=== PATIENT | female | born 1950 ===

== ENCOUNTER → 2018-02-13 | Outpatient (CLI) | payer OTHER | LOC: LAB 11:45 → LAB SHORT 11:45 | PROVIDERS: Nurse Practitioner Family | DX: Z01.419 Encounter for gynecological examination (general) (routine) without abnormal findings (principal) | CPT/HCPCS: 87624; G0145 ==

== ENCOUNTER 2022-05-11 15:56 | Emergency (ER) | payer OTHER ==
[~2022-05-11] VITALS: Ht 157.5 cm; Wt 81.7 kg
[2022-05-11] MEDS ORDERED: AMOCLA875 PO (16:21)
== END 2022-05-11 18:58 | disposition home or self-care (01) ==
LOC: ER 15:56
DX: S31.815A Open bite of right buttock, initial encounter (principal); W54.0XXA Bitten by dog, initial encounter
CPT/HCPCS: 99282

== ENCOUNTER 2024-11-16 09:34 | Inpatient (IN) | payer OTHER ==
[~2024-11-16] VITALS: Ht 160 cm; Wt 75.7 kg
[~2024-11-16 09:34] MED LIST: AMOCLA875 PO
[2024-11-16 10:35] LABS: BASOPHILS ABSOLUTE AUTO 0.05 K/mm3 (0.00-0.23); BASOPHILS PERCENT AUTO 0 % (0-2); EOSINOPHILS ABSOLUTE AUTO 0.07 K/mm3 (0.00-0.68); EOSINOPHILS PERCENT AUTO 1 % (0-6); Hematocrit 39.3 % (33.0-51.0); Hemoglobin 12.8 g/dL (11.5-16.0); IMMATURE GRAN ABSOLUTE AUTO 0.07 K/mm3 (0.00-0.10); IMMATURE GRAN PERCENT AUTO 1 % (0-1); LYMPHOCYTES ABSOLUTE AUTO 1.26 K/mm3 (0.84-5.20); LYMPHOCYTES PERCENT AUTO 9 % (21-46); MONOCYTES ABSOLUTE AUTO 0.85 K/mm3 (0.16-1.47); MONOCYTES PERCENT AUTO 6 % (4-13); Mean Corpuscular HGB 30.7 pg (26.0-34.0); Mean Corpuscular HGB Conc 32.6 g/dL (31.5-36.5); Mean Corpuscular Volume 94 fL (80-100); Mean Platelet Volume 9.4 fL (9.1-12.4); NEUTROPHILS ABSOLUTE AUTO 12.52 K/mm3 (1.96-9.15); NEUTROPHILS PERCENT AUTO 85 % (41-73); Platelet Count 266 K/mm3 (150-400); RDW Standard Deviation 41.6 fL (35.1-46.3); Red Blood Cell Count 4.17 M/mm3 (3.80-5.20); White Blood Cell Count 14.82 K/mm3 (4.00-11.30)
[2024-11-16 11:08] LABS: Albumin, Blood 2.6 g/dL (3.4-5.0); Albumin/Globulin Ratio 0.6 (0.8-1.8); Bilirubin, Total 1.4 mg/dL (0.1-1.0); Bun/Creatinine Ratio 15.5 (12.0-20.0); Calcium, Blood 8.7 mg/dL (8.5-10.1); Creatinine, Blood 0.78 mg/dL (0.40-1.00); Globulin, Blood 4.6 g/dL (2.2-4.0); Potassium, Blood 4.3 mmol/L (3.5-5.5); Total Protein, Blood 7.2 g/dL (6.4-8.2)
[2024-11-16] MEDS ORDERED: Vancomycin HCL 2,000 MG in NS 500 ML IV ONE (11:40)
[2024-11-16] MEDS ORDERED: FLU VACC TS2024-25(6MOS UP)/PF 45 MCG/0.5 ML SYRINGE IM PRN (13:05)
[2024-11-16] MEDS ORDERED: Piperacillin/Tazobactam Sod 4.5 GM in NS 100 ML IV SCH (13:23)
[2024-11-16 14:43] LABS: CHOL/HDL RATIO 4.5; Cholesterol 149 mg/dL (50-200); HDL Cholesterol 33 mg/dL (>39); LDL/HDL RATIO 2.8; Low Density Lipoprotein Chol 92 mg/dL (0-110); Triglycerides 121 mg/dL (30-160); Very Low Density Lipoprot Chol 24 mg/dL (6-32)
[2024-11-16] MEDS ORDERED: Clindamycin 900mg in D5W 50ML 50 ML IV SCH (15:00)
[2024-11-16] MEDS ORDERED: Insulin Human Lispro 100 Units/ML 3ML Syringe SC SCH (16:30)
[2024-11-16 22:10] VITALS: BP 129/72
[2024-11-16] MEDS ORDERED: NS 250 ML IV PRN (23:50)
[2024-11-16] MEDS ORDERED: FentaNYL Citrate 50 MCG/ML 2 ML Injection IV PRN (23:50)
[2024-11-17] VITALS (13 sets, daily range): BP systolic 89–120; BP diastolic 53–68
[2024-11-17] MEDS ORDERED: Vancomycin HCL 750 MG in NS 250 ML IV SCH
[2024-11-17] MEDS ORDERED: Clindamycin 900mg in D5W 50ML 50 ML IV SCH (03:00)
--- NOTE | 2024-11-17 07:35 | NUR ---
AERIAL APPLICATOR PILOT SUMMARY PT ADMITTED FROM THE ER. KEPT NPO AFTER MIDNIGHT FOR I&D. DRESSING CHANGE DONE PER MD ORDERS. PT HAS LOW HEALTH LITERACY. REPORTS USING "NATURAL METHODS" FOR HER DIABETES AND REPORTS NOT TAKING ANY MEDICATIONS AT HOME. HER BLOOD SUGAR WAS IN THE 300S ON ADMIT BUT, PER REPORT, SHE HAD REFUSED HER INSULIN. HOWEVER, AFTER A LONG DISCUSSION WITH PT THIS MORNING, SHE IS WILLING TO, AT LEAST TEMPORARILY, ALLOW TREATMENT WITH INSULIN FOR HER DIABETES SHE UNDERSTANDS WE ARE TRYING TO HELP HER INFECTION IMPROVE. PT REPORTS LIVING IN AN RV WITH HER DOG. SHE WILL NEED ASSISTANCE FROM CARE MANAGEMENT. PT HAS SIGNIFICANT SHORT TERM MEMORY LOSS. UNCLEAR IF THIS IS HER BASELINE OR NOT. SHE REPORTS NOT HAVING ANY FAMILY/FRIENDS AND THAT HER DOG IS STAYING AT A HOMELESS GROUP HOME WHILE SHE IS IN THE HOSPTIAL.
[2024-11-17 07:53] LABS: BASOPHILS ABSOLUTE AUTO 0.05 K/mm3 (0.00-0.23); BASOPHILS PERCENT AUTO 0 % (0-2); EOSINOPHILS PERCENT AUTO 1 % (0-6); Hematocrit 33.4 % (33.0-51.0); Hemoglobin 11.2 g/dL (11.5-16.0); IMMATURE GRAN ABSOLUTE AUTO 0.08 K/mm3 (0.00-0.10); IMMATURE GRAN PERCENT AUTO 1 % (0-1); LYMPHOCYTES ABSOLUTE AUTO 0.87 K/mm3 (0.84-5.20); LYMPHOCYTES PERCENT AUTO 6 % (21-46); MONOCYTES ABSOLUTE AUTO 0.83 K/mm3 (0.16-1.47); MONOCYTES PERCENT AUTO 6 % (4-13); Mean Corpuscular HGB 31.4 pg (26.0-34.0); Mean Corpuscular HGB Conc 33.5 g/dL (31.5-36.5); Mean Corpuscular Volume 94 fL (80-100); Mean Platelet Volume 9.1 fL (9.1-12.4); NEUTROPHILS ABSOLUTE AUTO 12.18 K/mm3 (1.96-9.15); NEUTROPHILS PERCENT AUTO 86 % (41-73); Platelet Count 250 K/mm3 (150-400); Red Blood Cell Count 3.57 M/mm3 (3.80-5.20); White Blood Cell Count 14.21 K/mm3 (4.00-11.30)
[2024-11-17 08:17] LABS: Albumin, Blood 2.2 g/dL (3.4-5.0); Albumin/Globulin Ratio 0.5 (0.8-1.8); Bilirubin, Total 1.1 mg/dL (0.1-1.0); Bun/Creatinine Ratio 14.4 (12.0-20.0); Calcium, Blood 8.1 mg/dL (8.5-10.1); Creatinine, Blood 0.9 mg/dL (0.40-1.00); Globulin, Blood 4.2 g/dL (2.2-4.0); Potassium, Blood 4.2 mmol/L (3.5-5.5); Total Protein, Blood 6.4 g/dL (6.4-8.2)
[2024-11-17] MEDS ORDERED: Miconazole Nitrate 2% 85 GM PWD TOP SCH (09:00)
[2024-11-17] MEDS ORDERED: Enoxaparin 40 MG/0.4 ML SYR SC SCH (09:00)
[2024-11-17] MEDS ORDERED: Insulin Glargine-Yfgn 100 Unit/mL 3 ML SYR SC SCH (09:00)
[2024-11-17] MEDS ORDERED: Lidocaine HCl 1% 30 ML SDV ONE (13:04)
[2024-11-17] MEDS ORDERED: Bupivacaine 0.5% HCl 5 MG/ML 30MLVIAL ONE (13:04)
[2024-11-17] MEDS ORDERED: Bacitracin Zinc Oint 1GRAM UD Packet TOP ONE (13:10)
[2024-11-17] MEDS ORDERED: Lactated Ringer's 1,000 ML IV SCH (15:00)
[2024-11-17] MEDS ORDERED: propofoL 20 ML IV ONE (15:03)
[2024-11-17] MEDS ORDERED: Ondansetron HCl 2 MG / ML 2ML Vial ONE (15:03)
[2024-11-17] MEDS ORDERED: Metoclopramide HCl 5MG / ML 2ML Vial ONE (15:04)
--- NOTE | 2024-11-17 15:51 | NUR ---
History, Chart, Medications and Allergies reviewed before start of procedure. Pre-Op teaching done. Pt verbalizes understanding. Patient confirms NPO status and agrees with scheduled surgery. Patient's necklace labled & transferred to PACU.
[2024-11-17] MEDS ORDERED: FentaNYL Citrate 50 MCG/ML 2 ML Injection ONE (15:55)
[2024-11-17] MEDS ORDERED: Atropine Sulfate 0.4 MG/1 ML Vial ONE (16:04)
--- NOTE | 2024-11-17 19:03 | NUR ---
SHIFT SUMMARY: PT A&O X3. PT CAN BE VERY FORGETFUL. CAN ALSO GET VERY ANXIOUS AND AGITATED AT TIMES. PT NPO FOR SURGERY TODAY. I&D COMPLETED. WOUND CARE DRESSING ORDER TO REINFORCE BUT NOT CHANGE UNTIL FOLLOW-UP. EXTREMITY TO BE KEPT ELEVATED. BLENDER MACHINE OPERATOR AWARE. PT ONE PERSON ASSIST c FWW AND GB. REDNESS NOTED UNDER BREASTS. MICONAZOLE POWDER APPLIED. BGC CHANGED TO AC/HS. CALL LIGHT IN REACH. BED IN LOWEST POSITION.
[2024-11-17 23:26] LABS: Vancomycin, Trough 19.1 ug/mL (5.0-10.0)
[2024-11-18 04:43] VITALS: BP 110/63
[2024-11-18 05:53] LABS: BASOPHILS ABSOLUTE AUTO 0.05 K/mm3 (0.00-0.23); BASOPHILS PERCENT AUTO 0 % (0-2); EOSINOPHILS PERCENT AUTO 3 % (0-6); Hematocrit 31.6 % (33.0-51.0); Hemoglobin 10.6 g/dL (11.5-16.0); IMMATURE GRAN ABSOLUTE AUTO 0.03 K/mm3 (0.00-0.10); IMMATURE GRAN PERCENT AUTO 0 % (0-1); LYMPHOCYTES ABSOLUTE AUTO 1.69 K/mm3 (0.84-5.20); LYMPHOCYTES PERCENT AUTO 14 % (21-46); MONOCYTES ABSOLUTE AUTO 0.75 K/mm3 (0.16-1.47); MONOCYTES PERCENT AUTO 6 % (4-13); Mean Corpuscular HGB 31.1 pg (26.0-34.0); Mean Corpuscular HGB Conc 33.5 g/dL (31.5-36.5); Mean Corpuscular Volume 93 fL (80-100); Mean Platelet Volume 9.5 fL (9.1-12.4); NEUTROPHILS ABSOLUTE AUTO 9.64 K/mm3 (1.96-9.15); NEUTROPHILS PERCENT AUTO 77 % (41-73); Platelet Count 257 K/mm3 (150-400); RDW Standard Deviation 41.1 fL (35.1-46.3); Red Blood Cell Count 3.41 M/mm3 (3.80-5.20); White Blood Cell Count 12.56 K/mm3 (4.00-11.30)
[2024-11-18 06:15] LABS: Albumin/Globulin Ratio 0.5 (0.8-1.8); Bilirubin, Total 0.6 mg/dL (0.1-1.0); Bun/Creatinine Ratio 14.1 (12.0-20.0); Calcium, Blood 7.9 mg/dL (8.5-10.1); Creatinine, Blood 0.92 mg/dL (0.40-1.00); Globulin, Blood 3.9 g/dL (2.2-4.0); Potassium, Blood 4.1 mmol/L (3.5-5.5); Total Protein, Blood 5.9 g/dL (6.4-8.2)
[2024-11-18 07:14] VITALS: BP 102/59
--- NOTE | 2024-11-18 07:33 | NUR ---
NUTRITION SERVICES ASSISTANT SUMMARY PT GETTING UP TO USE BSC WITH X1 ASSIST. VSS. HEALTH LITERACY A SIGNIFICANT BARRIER TO PT EDUCATION. PT MAY BENEFIT FROM A DEMENTIA WORKUP IT APPEARS HER SHORT TERM MEMORY LOSS IS SIGNIFICANT. NO ACUTE ISSUES OVERNIGHT. SEE ASSESSMENT CHARTING. BED ALARM IS CURRENTLY ON AND CALL LIGHT IS WITHIN REACH.
[2024-11-18] MEDS ORDERED: Enoxaparin 40 MG/0.4 ML SYR SC SCH (10:00)
[2024-11-18] MEDS ORDERED: Zinc Sulfate 220 MG Cap (Provides 50MG) PO SCH (11:35)
[2024-11-18] MEDS ORDERED: Ascorbic Acid 250 MG Chew PO SCH (11:35)
[2024-11-18] MEDS ORDERED: Vancomycin HCL 1,500 MG in NS 250 ML IV SCH (13:00)
[2024-11-18 15:23] VITALS: BP 114/70
--- NOTE | 2024-11-18 17:58 | NUR ---
SHIFT SUMMARY: PT ORIENTED X4 WITH ORIENTATION QUESTIONS BUT SHORT TERM MEMORY NOTICABLY IMPAIRED. SPOKE WITH DR. WALDEN WHO PLACED ORDER FOR COG EVAL WITH A SCORE OF 19/30 INDICATING MILD COGNITIVE IMPAIRMENT. PT LIVES AT [facility]. PER MISSING PERSONS INVESTIGATOR NOTE, PT RV IS NOT SUITABLE TO LIVE IN AND CAN NOT BE REPAIRED. PT TO HAVE HALF-WAY ABX FOR SEVERAL WEEKS. PER DR. ORTIZ NOTE, REINFORCE OF DRESSING OKAY BUT NOT TO CHANGE UNTIL FOLLOW-UP. PT UNWILLING TO USE WALKER WITH TRANSFERS IN ORDER TO MAINTAIN 50% WEIGHT BEARING ON L. FOOT. CALLED [employer] WHO WAS ABLE TO SEND POST OP BOOT. CALL LIGHT IN REACH. BED IN LOWEST POSITION.
[2024-11-18 20:56] VITALS: BP 114/67
--- NOTE | 2024-11-19 04:07 | NUR ---
SHIFT SUMMARY PATIENT HAD NO ACUTE CHANGES. AXOX 3 WITH SHORT TERM MEMORY. ONE ASSIST FWW/GB TO BSC. PIV INTACT. IV ABXS INFUSED. DENIES CHEST PAIN, SOB, AND N/V. VSS/AFEBRILE. DRESSING TO LEFT FOOT CHANGED BY DR ORTIZ AND WILL CHANGE AGAIN TODAY PER NOTE. CONFUSED X ONE AND REORIENTED BACK INTO BED. CALL LIGHT IN REACH. BED IN LOWEST POSITION AND ALARM ACTIVATED. WILL CONTINUE TO MONITOR UNTIL DAY SHIFT NURSE ASSUMES CARE.
[2024-11-19 05:03] VITALS: BP 94/82
[2024-11-19 05:54] LABS: BASOPHILS ABSOLUTE AUTO 0.05 K/mm3 (0.00-0.23); BASOPHILS PERCENT AUTO 1 % (0-2); EOSINOPHILS PERCENT AUTO 7 % (0-6); Hematocrit 30.9 % (33.0-51.0); Hemoglobin 10.5 g/dL (11.5-16.0); IMMATURE GRAN ABSOLUTE AUTO 0.02 K/mm3 (0.00-0.10); IMMATURE GRAN PERCENT AUTO 0 % (0-1); LYMPHOCYTES ABSOLUTE AUTO 1.24 K/mm3 (0.84-5.20); LYMPHOCYTES PERCENT AUTO 14 % (21-46); MONOCYTES ABSOLUTE AUTO 0.61 K/mm3 (0.16-1.47); MONOCYTES PERCENT AUTO 7 % (4-13); Mean Corpuscular HGB 31.3 pg (26.0-34.0); Mean Corpuscular Volume 92 fL (80-100); Mean Platelet Volume 9.3 fL (9.1-12.4); NEUTROPHILS ABSOLUTE AUTO 6.47 K/mm3 (1.96-9.15); NEUTROPHILS PERCENT AUTO 72 % (41-73); Platelet Count 248 K/mm3 (150-400); RDW Coefficient Variation 11.9 % (11.7-14.2); RDW Standard Deviation 40.3 fL (35.1-46.3); Red Blood Cell Count 3.36 M/mm3 (3.80-5.20); White Blood Cell Count 8.99 K/mm3 (4.00-11.30)
[2024-11-19 06:21] LABS: Albumin, Blood 1.9 g/dL (3.4-5.0); Albumin/Globulin Ratio 0.5 (0.8-1.8); Bilirubin, Total 0.5 mg/dL (0.1-1.0); Bun/Creatinine Ratio 11.8 (12.0-20.0); Creatinine, Blood 0.85 mg/dL (0.40-1.00); Globulin, Blood 4.1 g/dL (2.2-4.0)
[2024-11-19 07:24] VITALS: BP 126/72
[2024-11-19] MEDS ORDERED: Loperamide HCl 2 MG Cap PO PRN (09:10)
[2024-11-19] MEDS ORDERED: Charcoal/Sorbitol 50 GM (Cherry Flavor) PO ONE (09:10)
[2024-11-19] MEDS ORDERED: Lactobacil 2-S.Thermo-Bifido 1 1 Cap PO SCH ×2 (09:40→21:00)
[2024-11-19 15:25] VITALS: BP 116/74
--- NOTE | 2024-11-19 18:42 | NUR ---
SHIFT SUMMARY NO ACUTE CHANGES, VSS, A/Ox3 WITH SHORT TERM MEMORY ISSUES. PT DENIES PAIN T/O SHIFT. DR. ORTIZ COMPLETED DRESSING CHANGE THIS EVENING AND PLANS TO COMPLETE AN ADDITIONAL I&D TOMORROW. NEW IV PLACED DUE TO FIRST IV INFILTRATING. IV INSERTED BY STUDENT NURSE UNDER THIS RN SUPERVISION - ZOSYN CURRENTLY INFUSING. PT RESTING IN RECLINER EATING DINNER, CALL LIGHT WITHIN REACH. SURGICAL SHOE ON.
[2024-11-19 21:23] VITALS: BP 113/85
[2024-11-20 04:07] VITALS: BP 100/70
--- NOTE | 2024-11-20 04:11 | NUR ---
SHIFT SUMMARY PT ALERT ORIENTED X 4 WITH FORGETFULLNESS AND CONFUSION. SHE GETS UP AD ELMER IN HER ROOM. SHE HAS ORDERS TO WEAR HER WALKING BOOT TO HER LT FOOT AT ALL TIMES WHEN SHE GETS UP BUT SHE OFTEN REMOVES IT AND FORGETS TO PUT IT BACK ON. SHE IS REMINDED SEVERAL TIMES. SHES BEEN NPO SINCE MIDNIGHT FOR A I&D. REMAINS ON VANCO AND CLINDAMYCIN FOR CELLULITIS. SHES 50% WEIGHT BEARING TO HER LT LEG. REMAINS ON VANCO, CLINDAMYCIN AND ZOSYN. SHES DUE TO GET A PICC LINE PLACEMENT SO SHE CAN GET OUTPATIENT ANTIBIOTICS. SHES RESTING IN BED AT THIS TIME WITH CALL LIGHT IN REACH
[2024-11-20 06:18] LABS: BASOPHILS ABSOLUTE AUTO 0.03 K/mm3 (0.00-0.23); BASOPHILS PERCENT AUTO 0 % (0-2); EOSINOPHILS ABSOLUTE AUTO 0.72 K/mm3 (0.00-0.68); EOSINOPHILS PERCENT AUTO 9 % (0-6); Hematocrit 33.9 % (33.0-51.0); Hemoglobin 11.3 g/dL (11.5-16.0); IMMATURE GRAN ABSOLUTE AUTO 0.01 K/mm3 (0.00-0.10); IMMATURE GRAN PERCENT AUTO 0 % (0-1); LYMPHOCYTES ABSOLUTE AUTO 1.49 K/mm3 (0.84-5.20); LYMPHOCYTES PERCENT AUTO 20 % (21-46); MONOCYTES ABSOLUTE AUTO 0.47 K/mm3 (0.16-1.47); MONOCYTES PERCENT AUTO 6 % (4-13); Mean Corpuscular HGB 30.6 pg (26.0-34.0); Mean Corpuscular HGB Conc 33.3 g/dL (31.5-36.5); Mean Corpuscular Volume 92 fL (80-100); Mean Platelet Volume 9.5 fL (9.1-12.4); NEUTROPHILS ABSOLUTE AUTO 4.94 K/mm3 (1.96-9.15); NEUTROPHILS PERCENT AUTO 65 % (41-73); Platelet Count 296 K/mm3 (150-400); RDW Standard Deviation 40.1 fL (35.1-46.3); Red Blood Cell Count 3.69 M/mm3 (3.80-5.20); White Blood Cell Count 7.66 K/mm3 (4.00-11.30)
[2024-11-20 06:44] LABS: Albumin/Globulin Ratio 0.5 (0.8-1.8); Bilirubin, Total 0.4 mg/dL (0.1-1.0); Bun/Creatinine Ratio 9.6 (12.0-20.0); Calcium, Blood 8.3 mg/dL (8.5-10.1); Creatinine, Blood 0.83 mg/dL (0.40-1.00); Globulin, Blood 4.3 g/dL (2.2-4.0); Total Protein, Blood 6.3 g/dL (6.4-8.2)
[2024-11-20 07:35] VITALS: BP 93/49
[2024-11-20 13:32] LABS: Vancomycin, Trough 17.4 ug/mL (5.0-10.0)
[2024-11-20 13:46] VITALS: BP 107/65
[2024-11-20 16:07] VITALS: BP 146/79
--- NOTE | 2024-11-20 19:14 | NUR ---
SHIFT SUMMARY A/OX3, CONFUSED AND VERY FORGETFUL. PATIENT REUESTING MULTIPLE TIMES THROUGHOUT THE DAY TO LEAVE AND VISIT HER DOG ADN STATES SHE "WOULD COME RIGHT BACK". INFORMED MULTIPLE TIMES THAT IS NOT AN OPTION. PATIENT THEN REQUESTING STAFF MEMBERS TO GET HER DOG FOR HER AND BRING HIM TO THE HOSPITAL. PATIENT AGAIN EDUCATED THAT IS NOT AN OPTION. MRI OBTAINED OF PATIENT'S LEGFT FOOT TODAY. WOUND CARE PROVIDED PER ORDER. BLOOD PRESSURES SOFT THIS AM. PATIENT CONTINUES TO NOT ADHERE BY THE 50% WEIGHT BEARING STATUS TO LEFT LOWER EXTREMITY, DESPITE THOROUGH AND FREQUENT EDUCATION. NO OTHER CONCERNS AT THIS TIME. REPORT GIVEN TO JUKE BOX SERVICER RN.
--- NOTE | 2024-11-20 19:59 | NUR ---
Pt does not cooperate with asking for assist to get OOB, bed alarm in use. she is not compliant with weight bear status, and does put full weight bear on her foot, and does not put shoe on either. Pt up to BR without assist and locked door, this nurse explained issue and that she risks further injury to foot, she is not open to any instruction and feels we are "bossing her around". will continue to use bed alarm.
[2024-11-20 20:09] VITALS: BP 146/78
--- NOTE | 2024-11-21 04:28 | NUR ---
PT A&O X3, PO INTAKE WNL, VS WNL. COMPLAINS OF BACK PAIN BUT REFUSED ANY ASSIST WITH THAT. DID ATTEMPT TO REPOSITION HERE FOR BETTER BACK SUPPORT. PT WITH GOOD PO INTAKE. UP TO BR WITH ASSIST, DOES NOT CALL APPROPRIATELY, BED ALARM IN PLACE. CBG 202 NO COVERAGE NEEDED. PT DOES NOT COMPLY WITH WEIGHT BEARING STATUS. REQUIRES MULTIPLE REMINDERS TO KEEP FOOT ELEVATED. CONTINUES ON IVABX. AWAITING PLACEMENT TO SNF.
[2024-11-21 04:42] VITALS: BP 116/61
[2024-11-21 07:56] VITALS: BP 133/67
[2024-11-21 15:19] VITALS: BP 139/76
--- NOTE | 2024-11-21 16:37 | NUR ---
SHIFT SUMMARY PATIENT NOT ADHERING TO WEIGHT BEARING PRECAUTIONS, REACTS DEFENSIVELY WHEN REMINDED. SEVERAL BED EXITS WITHOUT USING CALL LIGHT, STATING VARIOUS REASONS FOR NOT USING CALL LIGHT. PULLED IV THIS AM, WHEN ASKED ABOUT WHAT HAPPENED PATIENT DENIED KNOWING ANYTHING DESPITE BEING COVERED IN BLOOD AND YELLING FOR HELP. NEW IV STARTED AND PATIENT CONTINUALLY ASKING FOR IT TO BE REMOVED STATING SHE HAS NOT BEEN RECEIVING ABX SO SHE DOESN'T NEED IT, WAS EDUCATED EACH TIME, PATIENT EACH TIME STATING THIS WAS NEW INFORMATION. DENIES KNOWING SHE HAS A WOUND ON HER FOOT, THEN RECITES WHAT DOC SAID DURING ROUNDING REGARDING HER WOUND AND TREATMENT. VOIDING WELL, TAKES PILLS WHOLE WITH WATER. C/O MILD PAIN, DENIED NEEDING MEDICATION. CALL LIGHT IN REACH, TIED TO BED RAIL FOR EASY ACCESS. BED ALARM ON. CARES ONGOING.
[2024-11-21] MEDS ORDERED: Vancomycin HCL 1,500 MG in NS 250 ML IV ONE (19:05)
[2024-11-21 20:09] VITALS: BP 136/70
--- NOTE | 2024-11-21 22:13 | NUR ---
PT VERY CONFUSED THIS NIGHT, KEEPS GETTING UP AMBULATING WITHOUT WALKER, AND WILL NOT COMPLY PWB ON LLE. PT KEEPS FORGETTING SHE'S IN THE HOSPITAL, KEEPS ASKING WHAT THE PLAN IS, AND IN RESPONSE I ENFORCE THAT SHE IS GETTING ABX FOR THE INFECTION IN HER FOOT, AND THAT THE PHYSICIAN DOES NOT WANT HER UP ON HER FOOT LIKE SHE IS. SHE KEEPS FOCUSING ON THE FACT THAT THE STAFF IS "POLICING HER ACTIVITY", THIS AGAIN I ENFORCE THAT THIS IS WHAT THE MD WANTS.
--- NOTE | 2024-11-21 23:34 | NUR ---
PT UP WITH BREAK NURSE AMBULATING IN LE, BOLTED TO ELEVATOR, ENCOURAGED BACK TO ROOM ASKED FOR AMA PAPER, ON PHONE LOOKING FOR SOMEONE TO COME PICK HER UP.
[2024-11-22] MEDS ORDERED: DiphenhydrAMINE HCl 50 MG/ML 1ML Vial ONE (00:03)
[2024-11-22] MEDS ORDERED: LORazepam 2 MG/ML 1ML Injection ONE (00:03)
[2024-11-22] MEDS ORDERED: DiphenhydrAMINE HCl 50 MG/ML 1ML Vial IV ONE (00:05)
[2024-11-22] MEDS ORDERED: LORazepam 2 MG/ML 1ML Injection IV ONE (00:05)
--- NOTE | 2024-11-22 00:37 | NUR ---
PT CALLING 911 X3 THEY INFORMED HER THEY WOULD NOT INTERVENE, PLASTERER MAINTENANCE CONTACTED AND TOLD ISSUE WITH PT'S CONFUSION, AND INABILITY TO CARE FOR SELF IN R/T IF SHE LEFT FACILITY, WE DID REMOVE PHONE FROM ROOM. NOTIFIED OF ISSUE AND HE STATES SHE CAN NOT LEAVE D/T CONFUSION AND INABILITY TO CARE FOR WOUND, OR SELF. PT DOES NOT HAVE A PLACE TO LIVE, AND TO OUR KNOWLEDGE DOES NOT HAVE FAMILY TO ASSIST WITH CARE. PT WAS MEDICATED WITH BENADRYL, AND ATIVAN IVP AFTER INSTRUCTION OF WHAT A HOLD MEANT AND WHY SHE COULD NOT LEAVE AT THIS TIME. SECURITY AT BEDSIDE.
[2024-11-22 09:01] VITALS: BP 148/68
[2024-11-22 09:58] LABS: Hematocrit 38.1 % (33.0-51.0); Hemoglobin 12.4 g/dL (11.5-16.0); Mean Corpuscular HGB 30.5 pg (26.0-34.0); Mean Corpuscular HGB Conc 32.5 g/dL (31.5-36.5); Mean Corpuscular Volume 94 fL (80-100); Mean Platelet Volume 9.1 fL (9.1-12.4); Platelet Count 336 K/mm3 (150-400); RDW Standard Deviation 41.2 fL (35.1-46.3); Red Blood Cell Count 4.07 M/mm3 (3.80-5.20); White Blood Cell Count 8.38 K/mm3 (4.00-11.30)
[2024-11-22 10:46] LABS: Albumin, Blood 2.3 g/dL (3.4-5.0); Anion Gap 10 mmol/L (3-11); Blood Urea Nitrogen 7 mg/dL (8-24); CO2, Blood 27 mmol/L (21-32); Calcium, Blood 8.7 mg/dL (8.5-10.1); Chloride, Blood 107 mmol/L (98-108); Creatinine, Blood 0.88 mg/dL (0.40-1.00); Glomerular Filtration Rate 70 (60-); Glucose, Blood 111 mg/dL (70-99); Potassium, Blood 4.4 mmol/L (3.5-5.5); Sodium, Blood 140 mmol/L (136-145)
--- NOTE | 2024-11-22 16:05 | NUR ---
PATIENT TRANSFERED TO ROOM 349, REPORT GIVEN TO YAAKOV ELDRIDGE
--- NOTE | 2024-11-22 16:32 | NUR ---
SHIFT SUMMARY PATIENT APPEARS MORE ORIENTED, LESS FORGETFUL COMPARED TO YESTERDAY. ASKING LESS REPETITVE QUESTIONS AND IS MOSTLY ADHERING TO WEIGHT BEARING STATUS. CONTINUES TO ASK WHEN SHE CAN GET HER RV FROM [facility] AND THEM COME RIGHT BACK, IT HAS BEEN EXPLAINED THAT IF SHE LEAVES SHE WILL NOT BE ADMITTED BACK TO THE FLOOR AND WILL HAVE TO GO TO ER FOR ADMISSION, NOT RETAINING THIS INFORMATION. ACCUSING RN'S OF NOT ADMINISTERING ABX, THEN STATES SHE IS JUST KIDDING. PATIENT HAS BEEN MOVED TO ANOTHER ROOM IN THE SCU. DR STONER ROUNDED AND HAS ORDERED ZYPREXA IF NEEDED FOR NOC.
[2024-11-22] MEDS ORDERED: Vancomycin HCL 1,250 MG in NS 250 ML IV SCH (17:00)
--- NOTE | 2024-11-22 18:15 | NUR ---
SHIFT SUMMARY PT TRANSFERED FROM ROOM 341 THIS SHIFT TO ROOM 349. PT NOTED TO BE ABLE TO ANSWER ORITATION QUESTION APPROPERATLY BUT UNABLE TO RETAIN NEW INFORMATION AND NOTED TO ASK THE SAME QUESTION REPEATED WITHIN 10MIN. PT NOTED TO BE UNCOMPLIENT WITH WT BEARING STATUS TO L FOOT. PT NOTED TO PULL IV OUT THIS SHIFT. PLAN IS TO HAVE A PICC LINE PLACED TOMORROW AND THEN DC TO SNF FOR 4-6WEEKS OF ABT.
[2024-11-22 20:25] VITALS: BP 139/96
[2024-11-22] MEDS ORDERED: OLANZapine 5 MG Tab PO SCH (21:00)
[2024-11-23 03:38] VITALS: BP 171/72
--- NOTE | 2024-11-23 04:21 | NUR ---
SHIFT SUMMARY PATIENT APPEARS TO BE RESTING COMFORTABLY AT THIS TIME. IV ABX HAVE INFUSED WITHOUT COMPLICATIONS. PATIENT HAS EXPRESSED MUCH CONCERN ABOUT GETTING BACK TO HER DOG. PATIENT IS ORIENTED X3 BUT VERY FORGETFUL. SHE IS ALSO VERY IMPULSIVE AT TIMES. BED ALARM IS ON. SAFETY PRECAUTIONS ARE BEING MAINTAINED.
[2024-11-23 07:52] VITALS: BP 148/65
--- NOTE | 2024-11-23 08:00 | NUR ---
0800: SPOKE TO DR DURING ROUNDING THIS AM. RE H/R. SHE TO REVIEW.
[2024-11-23] MEDS ORDERED: MetFORMIN HCl 500 mg PO SCH (12:00)
[2024-11-23 16:02] VITALS: BP 145/67
[2024-11-23 16:50] LABS: Vancomycin, Trough 15.2 ug/mL (5.0-10.0)
--- NOTE | 2024-11-23 17:55 | NUR ---
PT PLEASANT AND TALKATIVE TODAY. REMAINS QUITE FORGETFUL AND NEEDS REGULAR REASSURING. IS UP AMBULATING WITH FWW OFTEN T/O DAY. PICC LINE PLACED TODAY. RECEIVING ABX PER EMAR. SHE STATES QUITE CONCERNED ABOUT WHEN GETS TO GO TO SNF. OFFERED REASSURANCE KRISTINA HAPPEN EVENTUALLY. NO OTHER CONCERNS NOTED. BED IN LOW POSITION, CALL LITE IN REACH, CALLS APPROP, OFTEN COMES TO DOOR FOR NEEDS.
--- NOTE | 2024-11-23 18:48 | NUR ---
IN ROOM AND DID WOUND DRESSING CHANGE TODAY.
[2024-11-23 19:33] VITALS: BP 147/61
[2024-11-24 03:43] VITALS: BP 156/65
--- NOTE | 2024-11-24 04:27 | NUR ---
SHIFT SUMMARY PATIENT HAS APPEARED TO SLEEP COMFORTABLY TONIGHT. SHE HAS BEEN PLEASANT AND COOPERATIVE WITH CARE. IV ABX HAVE INFUSED WITHOU COMPLICATIONS. PATIENT IS ORIENTED X3. SHE IS VERY FORGETFUL. SHE HAS HER CALL LIGHT WITHIN REACH. SAFETY PRECAUTIONS ARE BEING MAINTAINED.
[2024-11-24 07:09] VITALS: BP 151/74
[2024-11-24 16:20] VITALS: BP 118/86
--- NOTE | 2024-11-24 18:36 | NUR ---
SHIFT NOTE: PT A/OX3 REQUIRING FREQUENT REDIRECTION AND ORIENTATION. SHE IS IND WITH ADLS AND HAS AMBULATED ON THE WHOLE UNIT TODAY. SAFETY MEASURES MAINTAINED, CARE CONTINUES
--- NOTE | 2024-11-24 18:45 | NUR ---
WOUND CARE DONE PER ORDERS
[2024-11-24 19:39] VITALS: BP 145/61
[2024-11-25 02:40] VITALS: BP 168/66
--- NOTE | 2024-11-25 04:56 | NUR ---
SHIFT SUMMARY PT A&Ox3. FORGETFUL AND SOME CONFUSION NOTED. PT STATED SHE NEEDED TO HAVE DRESSING CHANGED TONIGHT BECAUSE SHE NEEDED TO RUN [place] TOMORROW. PT ALSO FORGETS CARE GIVEN. PLEASANT AND COOPERATIVE. NO C/O PAIN AND DENIES PAIN IN LEFT FOOT. DRESSING CHANGED PER PT REQUEST, ON LEFT FOOT. PT REMINDED TO USE BOOT WHEN AMBULATING. IV ABX GIVEN PER EMAR. NO ACUTE CHANGES. BED IN LOWEST POSITION AND CALL LIGHT IN REACH.
[2024-11-25 07:15] VITALS: BP 126/56
[2024-11-25 16:38] VITALS: BP 113/81
--- NOTE | 2024-11-25 17:30 | NUR ---
SHIFT SUMMARY PT AOX2-3, CONFUSED AND FORGETFUL AT TIMES. FORGETS CARE PROVIDED TO HER. SOMETIMES USES THE CALL LIGHT, SOMETIMES JUST COMES OUT IN THE HALLWAY. SHE HAS HAD NO COMPLAINTS, SOME PAIN BUT REFUSES ANY ORAL MEDICATIONS. PICC PATENT AND RUNNING. INDEPENDENT WITH HER SURGICAL BOOT ON HER L FOOT. PLAN TO GO TO A SNF FOR IV ABX. PT REPOSITIONS SELF. CALL LIGHT WITHIN REACH, BED LOCKED AND IN THE LOWEST POSITION. WILL REPORT TO ONCOMING NURSE.
[2024-11-25 19:48] VITALS: BP 162/83
[2024-11-26 02:25] VITALS: BP 142/77
--- NOTE | 2024-11-26 04:47 | NUR ---
SHIFT SUMMARY PT A&Ox3 AND PLEASANT. NO C/O PAIN. DRESSING ON LEFT FOOT CHANGED PER ORDERS. IV ABX GIVEN PER EMAR. PT DID STATE AT START OF SHIFT THAT SHE MISSES HER DOG AND THAT SHE PLANS ON LEAVING TOMORROW TO SEE HER DOG AND HOPES SHE WILL BE ABLE TO COME BACK. PT EDUCATED THAT SHE CANNOT LEAVE AND BE ABLE TO COME JUST COME BACK WITOUT BEING READMITTED. PT STILL SEEMED ADIMIT THAT SHE WANTED TO LEAVE TO VISIT DOG. OTHERWISE, NO ACUTE CHANGES. BED IN LOWEST POSITION AND CALL LIGHT IN REACH.
[2024-11-26 07:23] VITALS: BP 144/62
[2024-11-26] MEDS ORDERED: MetroNIDAZOLE 500MG/NS 100 ml 100 ML IV SCH (16:00)
[2024-11-26 16:01] VITALS: BP 121/74
[2024-11-26] MEDS ORDERED: CefTRIAXone Sodium 2,000 MG in NS 100 ML IV SCH (18:00)
--- NOTE | 2024-11-26 18:01 | NUR ---
SHIFT SUMMARY PT AOX3, INDEPENDENT WITH SURGICAL BOOT ON. NO ACUTE CHANGES THIS SHIFT. REPOSITIONS SELF IN BED. WAITING ON PLACEMENT. WILL REPORT TO ONCOMING NURSE. PT PLEASANT AND COOPERATIVE WITH CARE.
[2024-11-26 19:43] VITALS: BP 144/66
[2024-11-27 03:56] VITALS: BP 157/69
--- NOTE | 2024-11-27 04:59 | NUR ---
SHIFT SUMMARY PT A&Ox3. ANXIOUS THIS SHIFT. PT VOICED CONCERN ABOUT HER DOG'S SAFETY AND THAT SHE WAS MISSING HIM FREQUENTLY T/O THE NIGHT. PT ALSO STATED SEVERAL TIMES THAT SHE WAS GOING TO LEAVE TOMORROW TO CHECK ON HER DOG AND HOPED SHE WOULD BE ABLE TO COME BACK. PT STATED MAYBE SHE COULD "SNEAK OUT AND NO ONE WOULD NOTICE". PT, REPEATEDLY CAME OUT TO LE TO TALK ABOUT DIFFERENT WAYS SHE COULD LEAVE THE HOSPITAL BUT SILL GET HER ANITIBOITIC TX. PT EDUCATED ON HOSPITAL POLICY MULTIPLE TIMES AND IMPORTANCE OF FINISHING UP ABX REGIMIN BUT PT ONLY SEEMED TO REMEMBER PARTS OF THE CONVERSTAIONS. DRESSING CHANGED PER ORDERS AT START OF SHIFT. ABX GIVEN PER EMAR. PT DID NOT SLEEP UNTIL 0430. SNACKS AND ENSURES GIVEN T/O NIGHT. BED IN LOWEST POSITION AND CALL LIGHT IN REACH.
[2024-11-27 07:26] VITALS: BP 141/64
[2024-11-27 15:11] VITALS: BP 137/88
--- NOTE | 2024-11-27 18:12 | NUR ---
PT ANSWERS ALL ORIENTATION QUESTIONS CORRECTLY, BUT IS CONFUSED AT TIMES. PT WORRIED ABOUT HER DOG AND PAYING BILLS, WANTED TO LEAVE AMA, THIS RN EDUCATED PT, MD SPOKE WITH PT AND ENCOURAGED HER TO STAY. PT DID NOT COMPLAIN OF PAIN. IND IN ROOM, VSS, RA. IV ANTIBIOTICS CONTINUED. CALL LIGHT IN REACH BED IN LOW LOCKED POSITION.
[2024-11-27 19:31] VITALS: BP 155/74
[2024-11-27] MEDS ORDERED: TraZODone HCl 50 MG Tab PO PRN (21:45)
[2024-11-28 04:10] VITALS: BP 148/59
--- NOTE | 2024-11-28 04:15 | NUR ---
INTELLIGENCE GROUP SUPERVISOR SUMMARY WITH HOSPITALIST CONTACT. PT IS A/OX3-4. ABLE TO ANSWER BASIC ORIENTATION QUESTIONS. PT IS FORGETFUL AND REQUIRES DIRECTION/REDIRECTION FREQUENTLY. PT IS PLEASANT AND COOPERATIVE FOR THIS SHIFT PT. PT MADE SEVERAL STATEMENTS ABOUT NOT BEING ABLE TO SLEEP. PER REPORT PT WAS AWAKE DURING THE DAY AND NIGHT BEFORE ACCORDING TO RN REPORT. PT HAS BEEN WAKEFUL AND NOT SLEEPING. CALL TO CHANNEL REBUILDER, SPOKE TO DR YANG. NEW ORDER FOR TRAZADONE 50MG BEDTIME NEEDED. PT WAS RESTFUL W/O THE NIGHT WITH LIMITED WAKEFULNESS. VITAL SIGNS REVIEWED AND STABLE. PT IS 50% WB TO LEFT FOOT; WHEN OOB REMINDED PT TO USE FWW AND OF WB STATUS. NO TALK THIS SHIFT OT PT WANTING TO LEAVE THE HOSPITAL. DRESSING TO LEFT FOOT CHANGED PER ORDER. REGULAR INTERVAL ROUNDING COMPLETE. CALL LIGHT ACCESSIBLE. CARE WILL CONTINUE UNTILL REPORT GIVEN TO ONCOMING NURSE.
[2024-11-28] MEDS ORDERED: DEXTROMETHORPHAN/BENZOCAINE 1 EACH LOZENGE MT PRN (04:55)
--- NOTE | 2024-11-28 05:01 | NUR ---
HOSPITALIST CONTACT PT C/O NEW ONSET SORE THROAT. REQUESTING THROAT CAIT. CALL TO HOSPITALIST. SPOKE TO DR LYNNE. NEW ORDER FOR 1-2 THROAT LOS EVERY 2 HOURS NEEDED. PROVIDED PT WITH TEA AND HONEY REQUESTED.
[2024-11-28 07:50] VITALS: BP 173/77
--- NOTE | 2024-11-28 12:07 | NUR ---
PATIENT MAKES NEEDS KNOWN, VERY FORGETFUL AND CONFUSED, EASILY IMPATIENT AND IRRITABLE, CALL LIGHT WITH IN REACH
[2024-11-28 15:37] VITALS: BP 147/77
--- NOTE | 2024-11-28 18:15 | NUR ---
NO ACUTE CHANGES, ALERT AND ORIENTED, UNABLE TO CONSOLE OR REDIRECT AT TIME, VERY LABILE. CONTINUAL REMINDERS THAT DISCHARGE IS NOT HAPPENING UNTIL SATURDAY. VERY POOR SHORT TERM MEMORY, MEDICATED WITH SORE THROAT LOZENGES, CALL LIGHT WITH IN REACH, WILL RELAY TO PM RN
[2024-11-28 19:36] VITALS: BP 157/83
[2024-11-29 05:28] VITALS: BP 152/83
[2024-11-29 06:05] LABS: Albumin, Blood 2.7 g/dL (3.4-5.0); Albumin/Globulin Ratio 0.6 (0.8-1.8); Bilirubin, Total 0.3 mg/dL (0.1-1.0); Bun/Creatinine Ratio 14.3 (12.0-20.0); C-Reactive Protein, High Sens. 6.95 mg/dL (0.000-3.000); Calcium, Blood 8.8 mg/dL (8.5-10.1); Creatinine, Blood 0.63 mg/dL (0.40-1.00); Globulin, Blood 4.6 g/dL (2.2-4.0); Potassium, Blood 4.4 mmol/L (3.5-5.5); Total Protein, Blood 7.3 g/dL (6.4-8.2)
--- NOTE | 2024-11-29 06:10 | NUR ---
SHIFT SUMMARY PT HAS BEEN WALKING IN AND OUT OF HER ROOM. ATTEMPTED TO GO INTO ANOTHER PT S ROOM. THIS RN, ANOTHER RN, AND LICENSED CERTIFIED ORTHOTIST ASKED PT TO RETURN TO HER ROOM, THIS IS A SAFETY ISSUE AND DISTURBS THE OTHER PT S IN THE UNIT. BOTH PT S REFUSED. SLIP COVER SEAMSTRESS INFORMED PT THAT IF THEY DID NOT FOLLOW HOSPITAL POLICIES, SECURITY WOULD BE CALLED. PT BECAME UPSET WITH SLIP COVER SEAMSTRESS. COMPROMISE IN PLACE TO HAVE PT S CALL EACH OTHER ON THEIR ROOM PHONES. PT CONTINUED COMING OUT OF HER ROOM TO WALK UP AND DOWN THE HALLWAY AND ASK FOR SNACKS. THIS RN GOT HER SOME PUDDING AND INFORMED PT SHE WAS WELCOME TO WALK UP AND DOWN HALLWAY, BUT THAT SHE NEEDED TO STAY CLOSE ENOUGH THAT THIS RN WOULD BE ABLE TO GET TO HER, SHOULD ANYTHING HAPPEN. PT WAS AGREEABLE. PT FINALLY WAS ABLE TO SLEEP PEACEFULLY APPROX [id number].
[2024-11-29 07:16] VITALS: BP 154/72
[2024-11-29] MEDS ORDERED: Losartan Potassium 25 MG Tab PO SCH (09:00)
[2024-11-29 15:26] VITALS: BP 138/78
--- NOTE | 2024-11-29 18:24 | NUR ---
PATIENT CONITNUED TO NEED QHOUR REMINDING AND DIRECTION. AMBULATED IN HALLS, MOOD VERY LABILE BEING EXTRA NIGHT AND THEN NEXT EXTRA MEAN, FREQUENT SWITCHES BACK AND FORTH. MADELAINE FIXATED ON DISCHARGE, HER DOG, AND INTERVENTIONS. STEADY GAIT WITH FWW, STAND BY ASSIST FOR AMBULATION, CALL LIGHT WITH IN REACH, WILL RELAY TO PM RN
[2024-11-29 19:27] VITALS: BP 135/60
[2024-11-30 04:41] VITALS: BP 134/60
--- NOTE | 2024-11-30 05:46 | NUR ---
SHIFT SUMMARY PT UP WALKING IN ROOM. WALKED TO END OF HALLWAY AND BACK. SHE HAS BEEN ANXIOUS, UNEASY, AND CONFUSED REGARDING HER HOSPITALIZATION AND UPCOMING TRANSFER. REMINDED PT OF THE CIRCUMSTANCE. PT ACCEPTING OF EXPLANATION. SHE IS NOW SLEEPING SOUNDLY. CALL LIGHT IN REACH.
[2024-11-30 07:43] VITALS: BP 153/67
[2024-11-30 15:40] VITALS: BP 126/66
--- NOTE | 2024-11-30 18:02 | NUR ---
PT ALERT AND ORIENTED X2, TO SELF AND PLACE, CONFUSED, FORGETFUL, AND PARANOID. FREQUENTLY LEAVES ROOM AND WANTS TO LEAVE AMA, EDUCATED ON IMPORTANCE OF STAYING TO GET IV ABX. DRESSING CHANGED TO FOOT TODAY PER ORDER. PT FIXATED ON NOT LEAVING DIMITRI AND HER DOG. SX BOOT ON WHILE OOB. NO COMPLAINTS OF PAIN, VSS, RA, NON-TELE.
[2024-11-30 19:33] VITALS: BP 168/68
[2024-12-01 02:28] VITALS: BP 125/60
--- NOTE | 2024-12-01 05:53 | NUR ---
SHIFT SUMMARY PT HAS BEEN AOX4 THROUGHOUT NIGHT. PT HAS BEEN SLIGHTLY IMPULSIVE AND FORGETFUL AT TIMES. PT REMAINS CALM AND COOPERATIVE AND REDIRECTABLE. EARLY ON IN SHIFT, PT HAS BEEN UP AND WALKING AROUND LE INDEPENDENTLY. REMINDED PT TO USE BOOT ON LEFT FOOT WHEN WALKING, AND TO CALL IF IN NEED OF TOILETING. PT VERBALIZED UNDERSTANDING. PT HAS BEEN ASLEEP COMFORTABLY IN BED. PT ONLY COMPLAINT WAS THAT SHE MISSES HER DOG. NO ACUTE EVENTS OVERNIGHT.
[2024-12-01 07:13] VITALS: BP 128/70
[2024-12-01 15:04] VITALS: BP 146/71
[2024-12-01] MEDS ORDERED: MetFORMIN HCl 500 mg PO SCH (17:00)
--- NOTE | 2024-12-01 18:08 | NUR ---
WOUND CARE COMPLETED PER ORDERS. PACKED WITH 1/4 IDIOFORM, WRAPPED IN TWO KERLIX TOLLS AND PAOLO WRAP.
[2024-12-01 19:50] VITALS: BP 139/61
[2024-12-02 01:56] VITALS: BP 147/79
--- NOTE | 2024-12-02 05:29 | NUR ---
SHIFT SUMMARY PT HAS BEEN RESTING COMFORTABLY IN BED. PT HAD BEEN RESTLESS AT START OF SHIFT, PACING AROUND ROOM AND LE AND CONVERSING WITH STAFF. PT HAS BEEN AOX4, CALM AND COOPERATIVE. SHE HAS BEEN FORGETFUL AT TIMES AND NEEDS CONSTANT REDIRECTION. PT IS INDEPENDENT TO RESTROOM, JUST NEEDING REMINDER TO WEAR BOOT ON L FOOT IF OOB. PT HAD NO COMPLAINTS OVERNIGHT. NO ACUTE EVENTS ON SHIFT.
[2024-12-02 07:13] VITALS: BP 122/56
[2024-12-02 15:50] VITALS: BP 121/67
--- NOTE | 2024-12-02 16:17 | NUR ---
WOUND CARE COMPLETED TO LEFT FOOT. CLEANSED WITH WOUND CLEANSER. PACKED WITH 1/4 IDIOFORM AND WRAPPED IN KERLIX/PAOLO WRAP. BOOT PLACED WHILE UP AND WALKING.
[2024-12-02 19:18] VITALS: BP 133/63
[2024-12-03 05:17] VITALS: BP 171/79
--- NOTE | 2024-12-03 05:45 | NUR ---
SHIFT SUMMARY PT ALERT AND ORIENTED TIMES 3-4. PT ADMITTED FOR DIABETIC FOOT ULCER. PT UNDERWENT I&D OF THE LEFT 5TH METATARSAL 11/17. PT REFUSED TO TAKE OLANZAPINE AT HS. PT DID TAKE HS ABX AND OTHER SCHEDULED MEDICATIONS. PT IS RECEPTIVE TO CARE AND MISSING HER DOG, WHICH IS BEING CARED FOR. ASKED NOC NURSE WHEN HER PROJECTED DISCHARGE IS, SHE IS CONCERNED THAT HER DOG IS BEING CARED FOR , BUT NOT SURE HOW LONG THEY WILL NEED TO CARE FOR DOG PLACE CALLED [facility]? WANTS TO KNOW. ADVISED PT THAT IT A QUESTION TO ASK HER DR IN THE MORNING, IT WAS ALMOST MIDNIGHT AT THE TIME. NO ACUTE EPISODES DURING SHIFT. PT APPEARED TO SLEEP ON AND OFF THROUGH THE NIGHT. BED IN LOW POSITION, CALL LIGHT WITHIN REACH, RAILS TIMES 2.
[2024-12-03 07:31] VITALS: BP 137/86
[2024-12-03 16:51] VITALS: BP 152/77
--- NOTE | 2024-12-03 18:21 | NUR ---
SHIFT SUMMARY: PATIENT IS ALERT AND ORIENTEDX4/INDEPENDENT HAS TO BE REMINDED TO BE 50% WEIGHT BEARING ON HER L FOOT AND THAT HER FOOT IS INFECTED. SHE HAS POOR SHORT TERM MEMORY. PATIENT WILL ASK SAME QUESTIONS OVER AND AGAIN. PATIENT EXPRESSES FRUSTRATION WITH HOSPITALIZATION; SHE VOICES THAT SHE WOULD LIKE TO LEAVE AND WILL ESCAPE. SHE CALLED THE HOSPITAL A CARE HOME AND WOULD LIKE TO GO TO HER DOG. THE PATIENT IS PARANOID THIS AFTERNOON THINKING THAT SHE IS BEING POISIONED AND THAT THE "DRUGS" SHE IS BEING GIVEN; IV ANTIBIOTICS ARE PUTTING HER TO SLEEP. EXPLAINED TO THE PATIENT THAT THEY ARE ANTIBIOTICS AND THAT THEY ARE NOT MEDICATIONS TO PUT HER TO SLEEP. SHE DOES RECALL A TIME WHERE SHE WAS GIVEN IM ZYPREXA AND WAS NOT HAPPY WITH THAT. PATIENT IS SITTING AT THE EDGE OF THE BED, IV ANTIBIOTICS INFUSING, CALL LIGHT WITHIN REACH, NO SIGNS OR SYMPTOMS OF DISTRESS, PLAN OF CARE ONGOING.
[2024-12-03 19:22] VITALS: BP 134/62
[2024-12-04 05:23] VITALS: BP 143/79
--- NOTE | 2024-12-04 06:10 | NUR ---
SHIFT SUMMARY PT ALERT AND ORIENTED TIMES 3-4. PT ADMITTED FOR DIABETIC FOOT ULCER. PT UNDERWENT I&D OF THE LEFT 5TH METATARSAL 11/17. PT REFUSED TO TAKE OLANZAPINE AT HS. PT DID TAKE HS ABX AND OTHER SCHEDULED MEDICATIONS. PT IS RECEPTIVE TO CARE AND MISSING HER DOG, WHICH IS BEING CARED FOR. ASKED NOC NURSE WHEN HER PROJECTED DISCHARGE IS, SHE IS CONCERNED THAT HER DOG IS BEING CARED FOR , BUT NOT SURE HOW LONG THEY WILL NEED TO CARE FOR DOG PLACE CALLED [facility]? WANTS TO KNOW. ADVISED PT THAT IT A QUESTION TO ASK HER DR IN THE MORNING, IT WAS ALMOST MIDNIGHT AT THE TIME. NO ACUTE EPISODES DURING SHIFT. PT APPEARED TO SLEEP ON AND OFF THROUGH THE NIGHT. BED IN LOW POSITION, CALL LIGHT WITHIN REACH, RAILS TIMES 2.
[2024-12-04 07:22] VITALS: BP 133/63
[2024-12-04 12:22] VITALS: BP 139/73
--- NOTE | 2024-12-04 12:39 | NUR ---
PATIENT CAME OUT OF ROOM VOICING TO SPEEDOMETER MECHANIC OUTSIDE OF ROOM THAT SHE WAS DIZZY AND WOULD LIKE SOME JUICE. SPEEDOMETER MECHANIC STATED "IF YOU'RE DIZZY LETS GO LAY DOWN." SPEEDOMETER MECHANIC WALKED PATIENT TO THE BED. PATIENT THREW HERSELF ONTO THE BED. PATIENT'S BLOOD SUGAR 151 AND VITALS STABLE. NO SIGNS OR SYMPTOMS OF DISTRESS. DR. MADISON NOTIFIED.
--- NOTE | 2024-12-04 17:09 | NUR ---
SHIFT SUMMARY: PATIENT IN BED, ALERT, NO SIGNS OR SYMPTOMS OF DISTRESS, PLAN OF CARE ONGOING. NO MORE EVENTS OR DIZZINESS SINCE INTIAL EVENT EARILER TODAY.
[2024-12-04 17:10] VITALS: BP 148/75
[2024-12-04 19:45] VITALS: BP 141/82
--- NOTE | 2024-12-05 06:06 | NUR ---
WOUND CARE DONE ON PT. APPROXIMATELY 15 CM OF PACKING REMOVED FROM DORSAL ULCER WOUND OF FOOT AND 17 CM REMOVED FROM PLANTAR SIDE. REPACKED AND CLEANED PER WOUND CARE ORDER. PT APPEARED TO TOLERATE WELL. FOOT APPEARED RED AND SWOLLEN ACROSS DORSAL SIDE OF FOOT.
--- NOTE | 2024-12-05 06:06 | NUR ---
SHIFT SUMMARY PT ALERT AND ORIENTED TIMES 3-4. PT ADMITTED FOR DIABETIC FOOT ULCER. PT IS RECEPTIVE TO CARE AND MISSING HER DOG, WHICH IS BEING CARED FOR. WOUND CARE DONE ON FOOT PER EMAR ORDER. NO ACUTE EPISODES DURING SHIFT. PT APPEARED TO SLEEP ON AND OFF THROUGH THE NIGHT. BED IN LOW POSITION, CALL LIGHT WITHIN REACH, RAILS TIMES 2.
[2024-12-05 15:53] VITALS: BP 134/76
--- NOTE | 2024-12-05 17:21 | NUR ---
SHIFT SUMMARY: NO EVENTS OR CHANGES WITH THE PATIENT THROUGHOUT THE SHIFT. SHE IS IN HER ROOM, ALERT, IN BED, CALL LIGHT WITHIN REACH, NO SIGNS OR SYMPTOMS OF DISTRESS, PLAN OF CARE ONGOING.
[2024-12-05 20:04] VITALS: BP 141/80
[2024-12-06 05:11] VITALS: BP 128/58
--- NOTE | 2024-12-06 05:59 | NUR ---
SHIFT SUMMARY PT ALERT AND ORIENTED TIMES 3-4. PT ADMITTED FOR DIABETIC FOOT ULCER. PT IS RECEPTIVE TO CARE AND MISSING HER DOG, WHICH IS BEING CARED FOR. PT CONTINUES TO REPEAT QUESTIONS REGARDING HER DISCHARGE PLANS, WHEN CAN SHE GO AND VISIT [facility] DOG [facility], AND HOW TO CARE FOR HER CARE. PT WOUND CARE DONE ON FOOT PER EMAR ORDER. NO ACUTE EPISODES DURING SHIFT. PT APPEARED TO SLEEP ON AND OFF THROUGH THE NIGHT. BED IN LOW POSITION, CALL LIGHT WITHIN REACH, RAILS TIMES 2.
[2024-12-06 08:03] VITALS: BP 138/81
[2024-12-06 16:01] VITALS: BP 154/75
--- NOTE | 2024-12-06 18:06 | NUR ---
PT A&OX3, VSS, RA, POC GLUCOSE <120, VERY FORGETFUL. PORTABLE X RAY TODAY OF L FOOT, OSTEOMYLITIS PERSISTS. PT TRIED TO LEAVE AMA THIS AFTERNOON, TOOK OFF BANDAGES FROM FOOT, PUT ON BAND AIDS, GOT DRESSED, AND TRIED TO LEAVE TO SEE HER DOG. THIS RN EDUCATED PT ON IMPORTANCE OF GETTING HER IV ANTIBIOTICS PLANNED, PT AGREED TO STAY. OTHERWISE, PT COOPERATIVE WITH CARE. THIS RN CLEANSED WOUNDS AND REPLACED BANDAGES. CALL LIGHT IN REACH, BED IN LOW POSITION.
[2024-12-06 19:45] VITALS: BP 146/74
[2024-12-07 05:59] VITALS: BP 169/67
--- NOTE | 2024-12-07 07:46 | NUR ---
SHIFT SUMMARY PT HAS BEEN RESTING IN BED OVERNIGHT. PT HAS BEEN AOX4, ALBEIT FORGETFUL. SHE OFTEN ASKS IF SHE COULD BE RELEASED TEMPORARILY TO SEE HER DOG. SHE HAS BEEN INDEPENDENT WALKING THE LE. NO COMPLAINTS FROM PATIENT, AND NO ACUTE EVENTS OVERNIGHT.
[2024-12-07 08:05] VITALS: BP 150/100
[2024-12-07 08:28] LABS: BASOPHILS ABSOLUTE AUTO 0.14 K/mm3 (0.00-0.23); BASOPHILS PERCENT AUTO 2 % (0-2); EOSINOPHILS ABSOLUTE AUTO 0.46 K/mm3 (0.00-0.68); EOSINOPHILS PERCENT AUTO 7 % (0-6); Hematocrit 42.3 % (33.0-51.0); IMMATURE GRAN ABSOLUTE AUTO 0.02 K/mm3 (0.00-0.10); IMMATURE GRAN PERCENT AUTO 0 % (0-1); LYMPHOCYTES ABSOLUTE AUTO 2.18 K/mm3 (0.84-5.20); LYMPHOCYTES PERCENT AUTO 31 % (21-46); MONOCYTES ABSOLUTE AUTO 0.39 K/mm3 (0.16-1.47); MONOCYTES PERCENT AUTO 6 % (4-13); Mean Corpuscular HGB 30.8 pg (26.0-34.0); Mean Corpuscular HGB Conc 33.1 g/dL (31.5-36.5); Mean Corpuscular Volume 93 fL (80-100); Mean Platelet Volume 9.3 fL (9.1-12.4); NEUTROPHILS ABSOLUTE AUTO 3.94 K/mm3 (1.96-9.15); NEUTROPHILS PERCENT AUTO 55 % (41-73); Platelet Count 231 K/mm3 (150-400); RDW Standard Deviation 44.2 fL (35.1-46.3); Red Blood Cell Count 4.55 M/mm3 (3.80-5.20); White Blood Cell Count 7.13 K/mm3 (4.00-11.30)
--- NOTE | 2024-12-07 09:00 | NUR ---
DRESSING CHANGE- PT DRESSING WAS REMOVED BY PODIATRY. THIS RN ATTEMPTED TO REPLACE, BUT THE PT WOULD NOT TOLLERATE ANYTHING TOUCHING THE FOOT. SHE HAD THIS RN REMOVE THE WRAP AND REWRAP 5 TIMES. COVERED THE WOUND WITH A BORDER MEPILEX AND NETTING. PT STATED THE MEPILEX WAS TOO TIGHT WELL.
[2024-12-07 17:26] VITALS: BP 141/93
--- NOTE | 2024-12-07 19:31 | NUR ---
SHIFT SUMMARY- PT ALERT AND ORIENTED TO SELF. THIS EVENING SHE GOT DRESSED AND SAID SHE WAS LEAVING AMA. THIS RN REMINDED HER THAT SHE WAS GOING FOR SURGERY WITH THE WOMEN'S STUDIES PROFESSOR TOMORROW. SHE WAS A BIT CONFUSED AND THOUGHT THAT WAS GOING TO HAPPEN A LOT LATER. SHE THEN GOT UPSET WITH STAFF FOR NOT TELLING HER SHE IS HAVING SURGERY TOMORROW. WHEN STAFF CLARIFIED THEY HAD THIS CONVERSATION ONCE BEFORE TODAY, SHE SEEMED TO REALIZE SHE WAS CONFUSED. SHE IS CURRENTLY AWARE THAT SHE IS NPO AT MIDNIGHT FOR SURGERY TOMORROW. BEDSIDE REPORT COMPLETED WITH NIGHT RN, NO S&S OF DISTRESS NOTED AT THE TIME OF REPORT.
[2024-12-07 20:16] VITALS: BP 135/70
--- NOTE | 2024-12-08 05:35 | NUR ---
SHIFT SUMMARY PT HAS BEEN RESTING COMFORTABLY IN BED OVERNIGHT. SHE HAS BEEN AOX4, CALM AND COOPERATIVE. SHE HAS BEEN FORGETFUL. PT HAS BEEN INDEPENDENTLY AMBULATING IN ROOM AND LE, WITH SPECIAL BOOT ON LEFT FOOT. SHE HAS NEEDED REMINDERS TO USE CALL LIGHT IF IN NEED OF TOILETING, AND SHE HAS BEEN AGREEABLE. PT HAS BEEN ANXIOUS CONCERNING PROCEDURE IN AM. SHE HAS BEEN NPO PAST MIDNIGHT FOR PROCEDURE. NO COMPLAINTS FROM PT. NO ACUTE EVENTS OVERNIGHT.
[2024-12-08 06:25] VITALS: BP 159/87
[2024-12-08 06:54] LABS: BASOPHILS ABSOLUTE AUTO 0.17 K/mm3 (0.00-0.23); BASOPHILS PERCENT AUTO 3 % (0-2); EOSINOPHILS ABSOLUTE AUTO 0.39 K/mm3 (0.00-0.68); EOSINOPHILS PERCENT AUTO 6 % (0-6); Hematocrit 46.3 % (33.0-51.0); Hemoglobin 14.8 g/dL (11.5-16.0); IMMATURE GRAN ABSOLUTE AUTO 0.01 K/mm3 (0.00-0.10); IMMATURE GRAN PERCENT AUTO 0 % (0-1); LYMPHOCYTES ABSOLUTE AUTO 2.11 K/mm3 (0.84-5.20); LYMPHOCYTES PERCENT AUTO 33 % (21-46); MONOCYTES ABSOLUTE AUTO 0.36 K/mm3 (0.16-1.47); MONOCYTES PERCENT AUTO 6 % (4-13); Mean Corpuscular HGB 30.3 pg (26.0-34.0); Mean Corpuscular Volume 95 fL (80-100); Mean Platelet Volume 9.8 fL (9.1-12.4); NEUTROPHILS ABSOLUTE AUTO 3.29 K/mm3 (1.96-9.15); NEUTROPHILS PERCENT AUTO 52 % (41-73); Platelet Count 252 K/mm3 (150-400); RDW Coefficient Variation 13.1 % (11.7-14.2); RDW Standard Deviation 45.4 fL (35.1-46.3); Red Blood Cell Count 4.88 M/mm3 (3.80-5.20); White Blood Cell Count 6.33 K/mm3 (4.00-11.30)
[2024-12-08 07:15] LABS: Calcium, Blood 8.9 mg/dL (8.5-10.1); Creatinine, Blood 0.65 mg/dL (0.40-1.00)
[2024-12-08 07:23] VITALS: BP 163/71
[2024-12-08] MEDS ORDERED: Losartan Potassium 50 MG Tab PO SCH (09:00)
--- NOTE | 2024-12-08 12:33 | NUR ---
DR. MARIN AT BEDSIDE. PT NPO AND WILL NOT BE HAVING SURGERY UNTIL LATE IN THE AFTERNOON. DR. MARIN D/C INSULIN AND WILL BE UPDATING CBG ORDERS. IV FLUIDS STARTED WHILE PT IS NPO.
[2024-12-08] MEDS ORDERED: NS 1,000 ML IV SCH (13:00)
[2024-12-08 14:34] VITALS: BP 149/76
[2024-12-08] MEDS ORDERED: Lactated Ringer's 1,000 ML IV SCH (14:40)
--- NOTE | 2024-12-08 16:26 | NUR ---
NO ACUTE CHANGES THIS SHIFT. PT IS ALERT AND ORIENTED X4, FORGETFUL, REDIRECTABLE. PT IS ANXIOUS ABOUT L FOOT SURGICAL INTERVENTION TODAY. PLAN FOR PT TO GO FOR SURGICAL PROCEDURE AROUND 1700. PT HAS BEEN NPO SINCE MIDNIGHT. IV FLUIDS STARTED THIS SHIFT. PT IS A SBA TO BATHROOM, USE OF SURGICAL SHOE, PT DENIES PAIN, DENIES CHEST PAIN, DENIES SOB.
[2024-12-08] MEDS ORDERED: FentaNYL Citrate 50 MCG/ML 2 ML Injection ONE (18:07)
[2024-12-08] MEDS ORDERED: propofoL 0 ML IV ONE (18:07)
[2024-12-08] MEDS ORDERED: Lidocaine HCl 2% 20 ML MDV ONE (18:09)
[2024-12-08] MEDS ORDERED: Albuterol 2.5 MG/3 ML VIAL INH PRN (18:20)
[2024-12-08] MEDS ORDERED: Bupivacaine 0.5% Inj 10 ML Vial ONE (18:24)
[2024-12-08] MEDS ORDERED: Lidocaine HCl 2% 10 ML SDA ONE (18:24)
[2024-12-08] MEDS ORDERED: Gentamicin Sulfate 40 MG / ML 2ML Vial ONE (18:24)
[2024-12-08] MEDS ORDERED: Ondansetron HCl 2 MG / ML 2ML Vial IV PRN (18:25)
[2024-12-08] MEDS ORDERED: Labetalol HCL 5 MG/ML 4ML Injection (Single Dose) IV PRN (18:25)
[2024-12-08] MEDS ORDERED: FentaNYL Citrate 50 MCG/ML 2 ML Injection IV PRN ×3 (18:25)
[2024-12-08] MEDS ORDERED: Lactated Ringer's 1,000 ML IV ONE (18:45)
[2024-12-08 20:02] VITALS: BP 147/76
[2024-12-09] VITALS (13 sets, daily range): BP systolic 129–162; BP diastolic 50–87
--- NOTE | 2024-12-09 03:47 | NUR ---
SHIFT SUMMARY ADMITTED FOR OSTEOMYELITIS OF THE LEFT FOOT. FULL CODE. PLAN IS FOR LEFT METATARSAL RESECTION PROCEDURE TODAY. IV ANTIB RX ARE SCHEDULED. IV FLUIDS ARE INFUSING. PICC LINE IN LUE. PT HAS BEEN NPO SINCE 12AM. SHE IS A&O X3, BUT HAS SHORT TERM MEMORY LOSS. SHE NEEDS FREQUENT REMINDERS OF CURRENT INTERVENTIONS. AC CBG'S. POST OP SHOE IS IN THE ROOM. DAILY DRESSING CHANGES, DRESSINGS ARE C/D/I. PODIATRY CONSULT IS DR. ORTIZ. I&D PREVIOUSLY PERFORMED ON THE TWO ULCERS ON 11/17/24.
--- NOTE | 2024-12-09 07:35 | NUR ---
PT HAS BEEN NPO SINCE 0000. DIET ORDERED DUE TO PT RESTRICTED DIET CHOICES.
[2024-12-09] MEDS ORDERED: Lactated Ringer's 1,000 ML IV SCH (07:45)
[2024-12-09] MEDS ORDERED: Lidocaine HCl 2% 10 ML SDA ONE (08:30)
[2024-12-09] MEDS ORDERED: Bupivacaine 0.5% HCl 5 MG/ML 30MLVIAL ONE ×2 (08:30→10:56)
[2024-12-09] MEDS ORDERED: Ketorolac Tromethamine 30mg Vial ONE (09:39)
[2024-12-09] MEDS ORDERED: FentaNYL Citrate 50 MCG/ML 2 ML Injection ONE (09:39)
[2024-12-09] MEDS ORDERED: propofoL 20 ML IV ONE (09:39)
[2024-12-09] MEDS ORDERED: Ondansetron HCl 2 MG / ML 2ML Vial ONE (09:39)
[2024-12-09] MEDS ORDERED: Albuterol 2.5 MG/3 ML VIAL INH PRN (10:10)
[2024-12-09] MEDS ORDERED: FentaNYL Citrate 50 MCG/ML 2 ML Injection IV PRN (10:10)
[2024-12-09] MEDS ORDERED: HYDROmorphone HCl/Pf 1MG SYR IV PRN (10:10)
[2024-12-09] MEDS ORDERED: Ondansetron HCl 2 MG / ML 2ML Vial IV PRN (10:10)
[2024-12-09] MEDS ORDERED: Phenylephrine HCl 100 MCG/ML-NS 10MLSYR (1MG/10ML) ONE (10:15)
--- NOTE | 2024-12-09 13:53 | NUR ---
LATE ENTRY- PT ARRIVED BACK FROM SURGERY, ALERT AND ORIENTED X4, REPORTS DIZZINESS "ROOM IS SPINNING" WITH ANY MOVEMENT. PT TOLORATED LUNCH, DENIES N/V. 1 ASSIST TO BATHROOM WITH FWW DUE TO DIZZINESS. PT HAS NEW POST SURG SHOE. CALLS APPROPRIATELY
[2024-12-09 18:47] LABS: BASOPHILS ABSOLUTE AUTO 0.09 K/mm3 (0.00-0.23); BASOPHILS PERCENT AUTO 1 % (0-2); EOSINOPHILS ABSOLUTE AUTO 0.37 K/mm3 (0.00-0.68); EOSINOPHILS PERCENT AUTO 5 % (0-6); Hematocrit 40.2 % (33.0-51.0); Hemoglobin 12.9 g/dL (11.5-16.0); IMMATURE GRAN ABSOLUTE AUTO 0.01 K/mm3 (0.00-0.10); IMMATURE GRAN PERCENT AUTO 0 % (0-1); LYMPHOCYTES ABSOLUTE AUTO 1.94 K/mm3 (0.84-5.20); LYMPHOCYTES PERCENT AUTO 25 % (21-46); MONOCYTES ABSOLUTE AUTO 0.42 K/mm3 (0.16-1.47); MONOCYTES PERCENT AUTO 5 % (4-13); Mean Corpuscular HGB 30.9 pg (26.0-34.0); Mean Corpuscular HGB Conc 32.1 g/dL (31.5-36.5); Mean Corpuscular Volume 96 fL (80-100); Mean Platelet Volume 9.5 fL (9.1-12.4); NEUTROPHILS ABSOLUTE AUTO 4.99 K/mm3 (1.96-9.15); NEUTROPHILS PERCENT AUTO 64 % (41-73); Platelet Count 221 K/mm3 (150-400); RDW Coefficient Variation 13.2 % (11.7-14.2); RDW Standard Deviation 46.5 fL (35.1-46.3); Red Blood Cell Count 4.18 M/mm3 (3.80-5.20); White Blood Cell Count 7.82 K/mm3 (4.00-11.30)
--- NOTE | 2024-12-09 19:21 | NUR ---
PT IS ALERT AND ORIENTED X4, FORGETFUL. C/O DIZZINESS WHEN SITTING IN BED. VSS ASSESSED, VSS STABLE, CBG WNL. PT UP TO BATHROOM WITH FWW AND POST OP SHOE.
[2024-12-09 19:49] LABS: Bun/Creatinine Ratio 22.4 (12.0-20.0); Calcium, Blood 8.3 mg/dL (8.5-10.1); Creatinine, Blood 0.67 mg/dL (0.40-1.00); Potassium, Blood 4.4 mmol/L (3.5-5.5)
--- NOTE | 2024-12-10 02:20 | NUR ---
PATIENT ATTEMPTED AMA PATIENT FULLY DRESSED HERSELF AND ATTEMPTED TO LEAVE AMA IN THE EARLY PART OF THIS SHIFT. I DID INFORM HER OF THE RISKS AND I CALLED MY CHARGE. CHARGE WENT INTO THE PATIENT'S ROOM AND DISCUSSED THE PROS AND CONS OF LEAVING AMA. AFTER A LONG DISCUSSION, THE PATIENT AGREED TO STAY. SHE AGREED TO GET BACK INTO HER GOWN WELL, BECAUSE "SOMEONE TOOK IT FROM HER".
[2024-12-10 03:25] VITALS: BP 155/67
[2024-12-10 03:27] VITALS: BP 158/71
[2024-12-10 03:28] VITALS: BP 138/79
--- NOTE | 2024-12-10 03:55 | NUR ---
SHIFT SUMMARY ADMITTED FOR OSTEOMYELITIS OF LEFT FOOT. FULL CODE. ANTIB RX ARE SCHEDULED. METATARSAL RESECTION PERFORMED ON PREVIOUS SHIFT. PICC LINE IN E. AC CBG'S. REFUSES CARE AND RX AT TIMES. SEE PREVIOUS NOTE. ADA/VEGAN/LOW GLUTEN DIET. A&O X3, PARANOIA NOTED. SHORT TERM MEMORY LOSS NOTED. SHE DID ACCEPT PAIN MEDICATION AND TRAZODONE THIS SHIFT.
[2024-12-10 07:54] VITALS: BP 140/91
[2024-12-10 08:32] LABS: BASOPHILS ABSOLUTE AUTO 0.09 K/mm3 (0.00-0.23); BASOPHILS PERCENT AUTO 1 % (0-2); EOSINOPHILS ABSOLUTE AUTO 0.42 K/mm3 (0.00-0.68); EOSINOPHILS PERCENT AUTO 6 % (0-6); Hematocrit 43.2 % (33.0-51.0); IMMATURE GRAN ABSOLUTE AUTO 0.01 K/mm3 (0.00-0.10); IMMATURE GRAN PERCENT AUTO 0 % (0-1); LYMPHOCYTES ABSOLUTE AUTO 1.75 K/mm3 (0.84-5.20); LYMPHOCYTES PERCENT AUTO 23 % (21-46); MONOCYTES ABSOLUTE AUTO 0.39 K/mm3 (0.16-1.47); MONOCYTES PERCENT AUTO 5 % (4-13); Mean Corpuscular HGB 30.6 pg (26.0-34.0); Mean Corpuscular HGB Conc 32.4 g/dL (31.5-36.5); Mean Corpuscular Volume 94 fL (80-100); Mean Platelet Volume 9.8 fL (9.1-12.4); NEUTROPHILS ABSOLUTE AUTO 4.82 K/mm3 (1.96-9.15); NEUTROPHILS PERCENT AUTO 65 % (41-73); Platelet Count 232 K/mm3 (150-400); RDW Coefficient Variation 13.1 % (11.7-14.2); RDW Standard Deviation 45.1 fL (35.1-46.3); Red Blood Cell Count 4.58 M/mm3 (3.80-5.20); White Blood Cell Count 7.48 K/mm3 (4.00-11.30)
[2024-12-10 08:51] LABS: Bun/Creatinine Ratio 16.2 (12.0-20.0); Calcium, Blood 8.6 mg/dL (8.5-10.1); Creatinine, Blood 0.68 mg/dL (0.40-1.00)
[2024-12-10 14:36] VITALS: BP 133/77
--- NOTE | 2024-12-10 19:15 | NUR ---
SHIFT SUMMARY PATIENT A/OX3, ABLE TO MAKE NEEDS KNOWN. PLEASANT THIS SHIFT, INTERMITTENTLY ARGUMENTATIVE WITH STAFF BUT COOPERATIVE WITH CARE. DRESSING TO PICC LINE CHANGED TODAY. WOUND CARE TO LEFT 5TH TOE AMPUTATION CHANGED BY SURGEON THIS AM. FENTANYL ADMINISTERED PER MAR FOR LEFT FOOT PAIN. IV ABX INFUSED PER MAR. DESPITE MUTLIPLE ATTEMPTS AT EDUCATING PATIENT, SHE IS NOT FOLLOWING PATIAL WEIGHT BEEARING STATUS TO LEFT FOOT. PATIENT VERY FORGETFUL WITH SHORT TERM MEMORY DEFECITS. NO OTHER CONCERNS AT THIS TIME.
[2024-12-10 19:42] VITALS: BP 152/87
[2024-12-11 04:22] VITALS: BP 137/123
[2024-12-11 04:41] VITALS: BP 148/68
--- NOTE | 2024-12-11 06:09 | NUR ---
SHIFT SUMMARY PT SLEPT INTERMITTENTLY DURING THE NIGHT. MEDICATED FOR SHOOTING PAIN TO LEFT FOOT PER EMAR. PT OOB FREQUENTLY- NEEDS SOME REMINDERS TO WEAR ORTHO SHOE AND TO LIMIT WEIGHT TO LEFT FOOT USING ONLY HER HEEL. PT WITH VERY LIMITED SHORT TERM MEMORY. BED IN LOWEST POSITION, CALL LIGHT WITHIN REACH, SIDERAILS UP X2.
[2024-12-11 07:09] VITALS: BP 177/83
[2024-12-11] MEDS ORDERED: OxyCODONE 5 mg/Acetamin 325 mg TABLET PO PRN (10:05)
[2024-12-11] MEDS ORDERED: AmLODIPine Besylate 5 MG Tab PO SCH (11:00)
[2024-12-11 11:19] VITALS: BP 156/106
[2024-12-11 14:21] VITALS: BP 121/51
--- NOTE | 2024-12-11 16:41 | NUR ---
SHIFT SUMMARY: PATIENT A/OX3, PLEASANT AND COOPERATIVE c CARE THIS SHIFT. PATIENT PAIN TO L FOOT WELL CONTROLLED c EMAR PAIN MEDS. PATIENT DAY 2 POST-OP TO L 5TH TOE AMPUTATION, DRESSING CHANGED TODAY BY DR. CRUM. NWB TO L FOOT PER ORDER, PATIENT NON COMPLIANT c NWB TO L FOOT, DESPITE OF MULTIPLE ATTEMPS OF EDUCATING HER T/O THE DAY. PATIENT STATED "I UNDERSTAND.", BUT CONTINUES TO PUT WEIGHT ON HER L FOOT c AMBULATION. PATIENT RECEIVED IV ABX/SCHEDULED MEDS PER EMAR. VITAL SIGNS REVIEWED. CALL LIGHT IN REACH.
[2024-12-11] MEDS ORDERED: Amoxicillin/Clavulanate K 875 MG Tab PO SCH (17:00)
[2024-12-11] MEDS ORDERED: Gabapentin 300 MG Cap PO SCH (21:00)
[2024-12-11] MEDS ORDERED: MetroNIDAZOLE 500 MG Tab PO SCH (21:00)
[2024-12-11] MEDS ORDERED: Trimethoprim/Sulfamethoxazole DS Tab PO SCH (21:00)
--- NOTE | 2024-12-12 02:27 | NUR ---
LEAVING AMA ON 12/11/2024 AT SHIFT CHANGE AT BEDSIDE REPORT, PT WAS VERY ANGRY BECAUSE TODAY HER DOCTOR TOLD HER SHE WAS GOING TO BE NON-WEIGHT BEARING ON HER LEFT FOOT STARTING TODAY. SHE DESCRIBES THIS CHANGE IN HER PLAN OF CARE "THE LAST STRAW". I VALIDATED HER FRUSTRATION AND ANGER AND LET HER KNOW ID BE BACK IN 10 MINUTES AFTER I WAS DONE GETTING REPORT ON MY OTHER PATIENTS. AFTER 10 MINUTES, I WENT BACK IN HER ROOM AND SHE HAD GOTTEN DRESSED AND PACKED UP ALL HER BELONGING AND INFORMED ME THAT SHE DIDNT "WANT TO WAIT IN THE HOSPITAL UNTIL SATURDAY TO FIND OUT THE OSTEOMYELITIS RESULTS" AND "IM GOING TO LEAVE WHETHER YOU LIKE IT OR NOT". ALTHOUGH PT HAS HAD DIFFICULTY WITH HER MEMORY AT TIMES DURING HER HOSPITALIZATION, AT THE TIME SHE WAS WANTING TO LEAVE AMA SHE WAS COMPLETELY ORIENTED. BEFORE DISCUSSING ALL OF THE RISKS ASSOCIATED WITH LEAVING AMA, I FIRST THOROUGHLY ASSESSED HER CURRENT MENTATION. I ASKED HER WHAT MONTH IT WAS AND SHE SAID "ITS November AND I KNOW WHAT YOURE TRYING TO DO AND ITS NOT GOING TO WORK". SHE WAS ABLE TO TELL ME HER NAME/, LOCATION, FULL DATE, REASON FOR ADMISSION, CURRENT PRESIDENT, CURRENT PLAN OF CARE, AND WAS ABLE TO DISCRIBE IN DETATIL WHY SHE WANTED TO LEAVE AMA AND WHY WE WANT HER TO STAY. SHE SAID "I WILL JUST CALL THE PODIATRY OFFICE ON SATURDAY TO GET MY RESULTS". I TOLD HER THAT THE SYSTEM DOESNT WORK THAT WAY AND SHE NEEDS ANTIBIOTICS NOW AND OVER THE WEEKEND FOR HER INFECTION. WE DISCUSSED THE FACT THAT LEAVING THE HOSPITAL NOW WITHOUT ANTIBIOTICS FOR HER INFECTION COULD LEAD TO SEPSIS, LOSS OF LIMB, ORGAN DAMAGE/FAILURE, OR . SHE SAID, "WELL I WILL SIGN SOMETHING SAYING I CANT ALYSE YOU IF THAT HAPPENS". I TOLD HER "IM NOT TRYING TO GET YOU TO STAY HERE IN THE HOSPITAL BECAUSE IM WORRIED ABOUT A LAWSUIT, IM TRYING TO GET YOU TO STAY HERE BECAUSE YOU NEED ANTIBIOTICS AND I CARE ABOUT YOU AND I DONT WANT ANYTHING BAD TO HAPPEN TO YOU". "YOUVE COME THIS FAR AND YOUVE PUT IN SO MUCH WORK TO GET BETTER, DONT GIVE UP NOW!" I ASKED HER IF THERE WAS ANYTHING WE COULD DO TO GET HER AT LEAST STAY OVERNIGHT SO SHE COULD DISCUSS THINGS WITH HER DOCTOR IN THE MORNING AND SHE SAID "ABSOLUTELY NOT". I DISCUSSED EVERYTHING WITH MY MANAGER [employer]ETING [employer]INO AND ULTIMATELY WE REALIZED THAT EVEN THOUGH WE WANT HER TO STAY SO WE CAN KEEP HER SAFE, THAT LEGALLY AND ETHICALLY WE COULDNT JUSTIFY FORCING HER TO STAY BECAUSE SHE CURRENTLY WAS ORIENTED AND HAD MADE UP HER MIND. I NOTIFIED DR YANG OF HER WANTING TO LEAVE AMA AND HE SAID WE CANT SEND HER WITH ANTIBIOTICS AND ALL WE CAN DO IS TRY TO HELP HER REALIZE THAT LEAVING IS NOT THE RIGHT DECISION, BUT THAT IF SHE STILL TRIES TO LEAVE SHE WILL NEED TO SIGN AN AMA FORM. WE AGAIN TRIED TO CONVINCE PT TO STAY AND WERE ULTIMATELY UNSUCCESSFUL. I REMOVED HER PICC LINE. I GAVE HER PHONE NUMBERS FOR PODIATRY AND THE HOSPITAL AND ENSURED THAT SHE UNDERSTOOD THAT SHE COULD COME BACK THROUGH THE ER ANYTIME AND THAT WE WOULD TREAT HER AGAIN. I REMINDED HER THAT SHE NEEDS TO FOLLOW-UP WITH A PROVIDER TO GET ANTIBIOTICS BRIANNA. SHE INFORMED ME THAT HER RIDE WAS ALREADY WAITING DOWNSTAIRS FOR HER. SHE SIGNED THE AMA FORM AND WALKED TO THE ELEVATORS. ON HER WAY OUT I AGAIN ASKED HER TO PLEASE CONSIDER STAYING AND SHE WAS ADAMENT THAT SHE WAS "DONE" BUT THAT SHE WOULD GET OUTPATIENT CARE BRIANNA.
== END 2024-12-11 19:45 | disposition left against medical advice (07) | DRG 853 ==
LOC: ER 09:34 → ERHOLD 09:35 → MEDS 09:35
PROVIDERS: Family Medicine; Internal Medicine; Physician Assistant; Podiatrist; Student in an Organized Health Care Education/Training Program; ADMIT Hospitalist
PROC: 3E03329 Introduction of Other Anti-infective into Peripheral Vein, Percutaneous Approach (ICD-10-PCS; 2024-11-16)
PROC: 0JBR0ZZ Excision of Left Foot Subcutaneous Tissue and Fascia, Open Approach (ICD-10-PCS; principal; 2024-11-17 15:00)
PROC: 02HV33Z Insertion of Infusion Device into Superior Vena Cava, Percutaneous Approach (ICD-10-PCS; 2024-11-23)
PROC: 0Y6N0ZF Detachment at Left Foot, Partial 5th Ray, Open Approach (ICD-10-PCS; 2024-12-09)
PROC: 0QBP0ZX Excision of Left Metatarsal, Open Approach, Diagnostic (ICD-10-PCS; 2024-12-09)
DX: A41.9 Sepsis, unspecified organism (principal); G93.41 Metabolic encephalopathy; L02.612 Cutaneous abscess of left foot; L03.116 Cellulitis of left lower limb; M00.9 Pyogenic arthritis, unspecified; M86.172 Other acute osteomyelitis, left ankle and foot; E11.621 Type 2 diabetes mellitus with foot ulcer; M20.42 Other hammer toe(s) (acquired), left foot; M20.41 Other hammer toe(s) (acquired), right foot; L97.523 Non-pressure chronic ulcer of other part of left foot with necrosis of muscle; E11.69 Type 2 diabetes mellitus with other specified complication; I10 Essential (primary) hypertension; E11.65 Type 2 diabetes mellitus with hyperglycemia; D64.9 Anemia, unspecified; B96.89 Other specified bacterial agents as the cause of diseases classified elsewhere; E66.9 Obesity, unspecified; E06.3 Autoimmune thyroiditis; Z53.29 Procedure and treatment not carried out because of patient's decision for other reasons; K90.0 Celiac disease; Z79.899 Other long term (current) drug therapy; F03.A0 Unspecified dementia, mild, without behavioral disturbance, psychotic disturbance, mood disturbance, and anxiety; Z79.4 Long term (current) use of insulin; Z88.8 Allergy status to other drugs, medicaments and biological substances; Z91.041 Radiographic dye allergy status; Z91.040 Latex allergy status; Z90.710 Acquired absence of both cervix and uterus; Z90.722 Acquired absence of ovaries, bilateral; Z85.43 Personal history of malignant neoplasm of ovary; Z91.048 Other nonmedicinal substance allergy status; B95.4 Other streptococcus as the cause of diseases classified elsewhere; G47.00 Insomnia, unspecified; K13.0 Diseases of lips; Z86.718 Personal history of other venous thrombosis and embolism; Z79.01 Long term (current) use of anticoagulants; Z90.79 Acquired absence of other genital organ(s); Z68.35 Body mass index [BMI] 35.0-35.9, adult
CPT/HCPCS: 36415; 36569; 73620; 73630; 73701; 73718; 80048; 80053; 80061; 80069; 80202; 82565; 82607; 82746; 82947; 83036; 83605; 84443; 85025; 85027; 85651; 86140; 86141; 87040; 87070; 87071; 87075; 87076; 87077; 87147; 87186; 87205; 88305; 93005; 93010; 94760; 96365; 96366; 96367; 96375; 96376; 97116; 97129; 97162; 97165; 97530; 97535; 99284-25; A9270; C1751; G0378; J0461; J0696; J1200; J1580; J1650; J1885; J2003; J2060; J2371; J2405; J2543; J2704; J2765; J3010; J3370; J7030; J7040; J7050; J7120; Q9967

== ENCOUNTER 2024-12-12 04:10 | Emergency (ER) | payer OTHER ==
[~2024-12-12] VITALS: Ht 157.5 cm; Wt 81.7 kg
[2024-12-12 04:35] VITALS: BP 150/77
[2024-12-12 04:40] LABS: BASOPHILS ABSOLUTE AUTO 0.07 K/mm3 (0.00-0.23); BASOPHILS PERCENT AUTO 1 % (0-2); EOSINOPHILS ABSOLUTE AUTO 0.41 K/mm3 (0.00-0.68); EOSINOPHILS PERCENT AUTO 5 % (0-6); Hematocrit 41.7 % (33.0-51.0); Hemoglobin 13.5 g/dL (11.5-16.0); IMMATURE GRAN ABSOLUTE AUTO 0.02 K/mm3 (0.00-0.10); IMMATURE GRAN PERCENT AUTO 0 % (0-1); LYMPHOCYTES ABSOLUTE AUTO 1.64 K/mm3 (0.84-5.20); LYMPHOCYTES PERCENT AUTO 20 % (21-46); MONOCYTES ABSOLUTE AUTO 0.51 K/mm3 (0.16-1.47); MONOCYTES PERCENT AUTO 6 % (4-13); Mean Corpuscular HGB 30.6 pg (26.0-34.0); Mean Corpuscular HGB Conc 32.4 g/dL (31.5-36.5); Mean Corpuscular Volume 95 fL (80-100); Mean Platelet Volume 9.5 fL (9.1-12.4); NEUTROPHILS ABSOLUTE AUTO 5.42 K/mm3 (1.96-9.15); NEUTROPHILS PERCENT AUTO 67 % (41-73); Platelet Count 225 K/mm3 (150-400); RDW Coefficient Variation 13.1 % (11.7-14.2); RDW Standard Deviation 45.1 fL (35.1-46.3); Red Blood Cell Count 4.41 M/mm3 (3.80-5.20); White Blood Cell Count 8.07 K/mm3 (4.00-11.30)
[2024-12-12 05:00] LABS: Albumin, Blood 3.4 g/dL (3.4-5.0); Albumin/Globulin Ratio 0.8 (0.8-1.8); Bilirubin, Total 0.5 mg/dL (0.1-1.0); Bun/Creatinine Ratio 20.5 (12.0-20.0); Calcium, Blood 8.9 mg/dL (8.5-10.1); Creatinine, Blood 0.58 mg/dL (0.40-1.00); Globulin, Blood 4.5 g/dL (2.2-4.0); Potassium, Blood 4.1 mmol/L (3.5-5.5); Total Protein, Blood 7.9 g/dL (6.4-8.2)
== END 2024-12-12 05:53 | disposition left against medical advice (07) ==
LOC: ER 04:10
PROVIDERS: Student in an Organized Health Care Education/Training Program
DX: M86.9 Osteomyelitis, unspecified (principal); E11.9 Type 2 diabetes mellitus without complications; Z91.048 Other nonmedicinal substance allergy status; Z91.041 Radiographic dye allergy status; Z91.040 Latex allergy status
CPT/HCPCS: 80053; 85025; 99283

== ENCOUNTER 2024-12-12 12:11 | Inpatient (IN) | payer OTHER ==
[~2024-12-12] VITALS: Ht 157.5 cm; Wt 72.8 kg
[2024-12-12 12:58] LABS: BASOPHILS ABSOLUTE AUTO 0.06 K/mm3 (0.00-0.23); BASOPHILS PERCENT AUTO 1 % (0-2); EOSINOPHILS ABSOLUTE AUTO 0.17 K/mm3 (0.00-0.68); EOSINOPHILS PERCENT AUTO 3 % (0-6); Hematocrit 41.3 % (33.0-51.0); Hemoglobin 13.1 g/dL (11.5-16.0); IMMATURE GRAN ABSOLUTE AUTO 0.01 K/mm3 (0.00-0.10); IMMATURE GRAN PERCENT AUTO 0 % (0-1); LYMPHOCYTES ABSOLUTE AUTO 1.44 K/mm3 (0.84-5.20); LYMPHOCYTES PERCENT AUTO 21 % (21-46); MONOCYTES ABSOLUTE AUTO 0.33 K/mm3 (0.16-1.47); MONOCYTES PERCENT AUTO 5 % (4-13); Mean Corpuscular HGB 30.2 pg (26.0-34.0); Mean Corpuscular HGB Conc 31.7 g/dL (31.5-36.5); Mean Corpuscular Volume 95 fL (80-100); Mean Platelet Volume 9.4 fL (9.1-12.4); NEUTROPHILS ABSOLUTE AUTO 4.91 K/mm3 (1.96-9.15); NEUTROPHILS PERCENT AUTO 71 % (41-73); Platelet Count 230 K/mm3 (150-400); RDW Coefficient Variation 13.2 % (11.7-14.2); RDW Standard Deviation 45.8 fL (35.1-46.3); Red Blood Cell Count 4.34 M/mm3 (3.80-5.20); White Blood Cell Count 6.92 K/mm3 (4.00-11.30)
[2024-12-12 13:17] LABS: Albumin, Blood 3.4 g/dL (3.4-5.0); Albumin/Globulin Ratio 0.8 (0.8-1.8); Bilirubin, Total 0.5 mg/dL (0.1-1.0); Bun/Creatinine Ratio 18.9 (12.0-20.0); Calcium, Blood 9.1 mg/dL (8.5-10.1); Creatinine, Blood 0.48 mg/dL (0.40-1.00); Globulin, Blood 4.5 g/dL (2.2-4.0); Total Protein, Blood 7.9 g/dL (6.4-8.2)
[2024-12-12 14:21] LABS: Source, Urine Clean Catch
[2024-12-12 14:24] LABS: Appearance, Urine Hazy (Clear); Bilirubin, Urine Neg (Neg); Blood, Urine Neg (Neg); Color, Urine Yellow (P-Yellow); Glucose Qualitative, Urine Neg (Neg); Ketones, Urine 2+ (Neg); Leukocyte Esterase, Urine 2+ (Neg); Nitrite, Urine Neg (Neg); Protein, Urine 1+ (Neg); Specific Gravity, Urine 1.015 (1.003-1.022); Urobilinogen, Urine NORM (Normal)
[2024-12-12 14:32] LABS: Bacteria Mod /hpf; Mucus Light (0-Heavy); Red Blood Cells, Urine 0-2 /hpf (0-2); Squamous Epithelial Cells Few /hpf (Few); Transitional Epithelial Cells Few /hpf (0-Rare)
[2024-12-12] MEDS ORDERED: FLU VACC TS2024-25(6MOS UP)/PF 45 MCG/0.5 ML SYRINGE IM SCH (16:00)
[2024-12-12] MEDS ORDERED: Acetaminophen 325 MG TABLET PO PRN (16:40)
[2024-12-12] MEDS ORDERED: TraZODone HCl 50 MG Tab PO PRN (16:40)
[2024-12-12] MEDS ORDERED: Losartan Potassium 50 MG Tab PO SCH (17:00)
[2024-12-12] MEDS ORDERED: OxyCODONE 5 mg/Acetamin 325 mg TABLET PO PRN (17:20)
[2024-12-12 17:38] VITALS: BP 171/89
--- NOTE | 2024-12-12 19:24 | NUR ---
ADMISSION NOTE: PATIENT ARRIVES TO ROOM VIA W/C AT 1733 FROM ER FOR DX'S OF OSTEOMYLITIS TO L FOOT. PATIENT ADMISSION AND SKIN ASSESSMENT COMPLETED. PATIENT A/OX4, LABILE MOOD, PLEASANT AND COOPERATIVE c CARE AT THIS TIME. POST-OP DAY 3 AMPUTATION TO L 5TH TOE, DRESSING CHANGED. PATIENT NWB TO L FOOT. PATIENT CONTINENT OF BOWEL/BLADDER, 1 ASSIST, STAND/PIVOT TO BSC. PATIENT MEDICATED X1 FOR PAIN PER EMAR c GOOD EFFECT. PATIENT OREINTATED TO ROOM AND CALL SYSTEM. CALL LIGHT IN REACH.
[2024-12-12 19:52] VITALS: BP 174/83
[2024-12-12] MEDS ORDERED: OLANZapine 5 MG Tab PO SCH (21:00)
[2024-12-13 04:32] VITALS: BP 113/80
[2024-12-13 05:00] LABS: BASOPHILS ABSOLUTE AUTO 0.07 K/mm3 (0.00-0.23); BASOPHILS PERCENT AUTO 1 % (0-2); EOSINOPHILS ABSOLUTE AUTO 0.56 K/mm3 (0.00-0.68); EOSINOPHILS PERCENT AUTO 7 % (0-6); Hematocrit 40.1 % (33.0-51.0); Hemoglobin 13.1 g/dL (11.5-16.0); IMMATURE GRAN ABSOLUTE AUTO 0.01 K/mm3 (0.00-0.10); IMMATURE GRAN PERCENT AUTO 0 % (0-1); LYMPHOCYTES ABSOLUTE AUTO 1.98 K/mm3 (0.84-5.20); LYMPHOCYTES PERCENT AUTO 26 % (21-46); MONOCYTES ABSOLUTE AUTO 0.61 K/mm3 (0.16-1.47); MONOCYTES PERCENT AUTO 8 % (4-13); Mean Corpuscular HGB 31.3 pg (26.0-34.0); Mean Corpuscular HGB Conc 32.7 g/dL (31.5-36.5); Mean Corpuscular Volume 96 fL (80-100); Mean Platelet Volume 9.5 fL (9.1-12.4); NEUTROPHILS ABSOLUTE AUTO 4.48 K/mm3 (1.96-9.15); NEUTROPHILS PERCENT AUTO 58 % (41-73); Platelet Count 231 K/mm3 (150-400); RDW Coefficient Variation 13.2 % (11.7-14.2); RDW Standard Deviation 46.6 fL (35.1-46.3); Red Blood Cell Count 4.18 M/mm3 (3.80-5.20); White Blood Cell Count 7.71 K/mm3 (4.00-11.30)
[2024-12-13 05:29] LABS: Albumin, Blood 2.8 g/dL (3.4-5.0); Albumin/Globulin Ratio 0.7 (0.8-1.8); Bilirubin, Total 0.3 mg/dL (0.1-1.0); Bun/Creatinine Ratio 24.1 (12.0-20.0); Calcium, Blood 8.5 mg/dL (8.5-10.1); Creatinine, Blood 0.83 mg/dL (0.40-1.00); Globulin, Blood 3.9 g/dL (2.2-4.0); Total Protein, Blood 6.7 g/dL (6.4-8.2)
--- NOTE | 2024-12-13 06:11 | NUR ---
SHIFT SUMMARY: Pt admitted for osteolysis and is a full code. Is alert and able to make needs known. ADLs have been SBA. denies pain or discomfort when asked.
[2024-12-13 07:26] VITALS: BP 126/47
[2024-12-13] MEDS ORDERED: Enoxaparin 40 MG/0.4 ML SYR SC SCH (09:00)
--- NOTE | 2024-12-13 09:51 | NUR ---
PATIENT CAME TO DOOR OF ROOM WHILE PRIMARY RN ON AM BREAK. PATIENT INSISTS ON LEAVING. CHARGE ANSHUL RN NOTIFIED AND CAME TO ROOM TO SPEAK WITH PATIENT. AND NOTIFIED. PATIENT HAD IV REMOVED BY KRISTIN ELDRIDGE. PATIENT REFUSED TO SIGN AMA FORM. WITNESS BY THIS RN AND ANSHUL THAT PATIENT INFORMED OF RISKS OF LEAVING AMA. PATIENT VERBALIZED UNDERSTANDING. PATIENT AMBULATED TO ELEVATORS WITHOUT ASSIST. REFUSES TO WAIT FOR OR CONSTANTIN TO COME SPEAK WITH HER.
--- NOTE | 2024-12-13 09:59 | NUR ---
AMA THIS RN CALLED INTO THE ROOM DUE TO THE PATIENT VOICING WANTING TO LEAVE AMA. THIS RN CALLED DR. SMITH AND STATED HE WOULD BE UP TO SEE PATIENT. THIS RN WENT INTO PATIENT ROOM WITH AMA PAPERWORK. IV HAD BEEN REMOVED. PATIENT STATING WE ARE GIVING HER SHOTS AND TRYING TO KILL HER. PATIENT STATES SHE JUST WANTS TO SEE HER DOG. THIS RN EDUCATED PATIENT THAT SHE WAS BEING GIVE ANTIBIOTICS TO HELP WITH HER INFECTION. EDUCATED ABOUT RISKS OF LEAVING AMA. PATIENT CALLED THIS RN CONDESCENDING AND REFUSED TO SIGN AMA PAPER. DIALLO PETERSON, MARTHA WITNESSED CONVERSATION AND SIGNED AMA WITH THIS RN. PATIENT WALKED TO ELEVATOR.
--- NOTE | 2024-12-13 10:20 | NUR ---
SHIFT NOTE: PATIENT APPEARS ANGRY, REFUSED CARE AND SCHEDULED AM MEDS. PATIENT REQUESTING TO BE LEFT ALONE IN ROOM. PER BREAK DIALLO THOMAS PATIENT LEFT AMA AT 0949. NEON GLASS BENDER, MABEL, DR. SESAY AND DR. SMITH WAS NOTIFIED.
== END 2024-12-13 09:49 | disposition left against medical advice (07) | DRG 638 ==
LOC: ER 12:11 → ERHOLD 15:56 → MEDS 17:31
PROVIDERS: Physician Assistant; ADMIT Hospitalist
DX: E11.69 Type 2 diabetes mellitus with other specified complication (principal); E11.52 Type 2 diabetes mellitus with diabetic peripheral angiopathy with gangrene; M86.9 Osteomyelitis, unspecified; Z59.02 Unsheltered homelessness; F03.A0 Unspecified dementia, mild, without behavioral disturbance, psychotic disturbance, mood disturbance, and anxiety; K90.0 Celiac disease; G47.00 Insomnia, unspecified; E06.3 Autoimmune thyroiditis; B96.89 Other specified bacterial agents as the cause of diseases classified elsewhere; B95.4 Other streptococcus as the cause of diseases classified elsewhere; B95.7 Other staphylococcus as the cause of diseases classified elsewhere; E11.621 Type 2 diabetes mellitus with foot ulcer; L97.523 Non-pressure chronic ulcer of other part of left foot with necrosis of muscle; Z89.422 Acquired absence of other left toe(s); Z91.040 Latex allergy status; Z88.8 Allergy status to other drugs, medicaments and biological substances; Z53.29 Procedure and treatment not carried out because of patient's decision for other reasons
CPT/HCPCS: 36415; 80053; 81001; 82947; 83605; 85025; 87086; 99285; A9270

== ENCOUNTER 2025-01-21 09:37 | Emergency (ER) | payer OTHER ==
[~2025-01-21] VITALS: Ht 157.5 cm; Wt 77.1 kg
[2025-01-21 10:19] VITALS: BP 95/78
== END 2025-01-21 10:25 | disposition home or self-care (01) ==
LOC: ER 09:37
DX: Z00.00 Encounter for general adult medical examination without abnormal findings (principal); Z91.013 Allergy to seafood; Z91.040 Latex allergy status; Z91.041 Radiographic dye allergy status; Z88.8 Allergy status to other drugs, medicaments and biological substances
CPT/HCPCS: 99284